=== PATIENT | female | born 1950 | race Caucasian/White ===

== ENCOUNTER 2019-02-01 14:36 | Emergency (ER) | payer MEDICARE, OTHER, SELFPAY ==
[2019-02-01 14:37] VITALS: BP 138/73; PULSE 70; RESP 16; TEMP 36.8; O2SAT 100; BMI 26.2
--- NOTE | 2019-02-01 14:49 | CT_ITS ---
STUDY: CT BRAIN WITHOUT CONTRAST REASON FOR EXAM: Female, 68 years old. FELL LAST WEEKEND SKIING, HIT HEAD, NO LOC, VISION PROBLEMS, [place], ON BLOOD THINNERS RADIATION DOSAGE (If Supplied By Facility): CTDIvol = ( 44.99 ) mGy, DLP = ( 796.11 ) mGycm TECHNIQUE: Transaxial CT imaging of the brain was performed without administration of intravenous contrast material. Individualized dose optimization techniques were used for this CT. COMPARISON: None. FINDINGS: Normal soft tissue structures. Normal calvarium. Normal size ventricles and extra-axial spaces for the patient's age. There are areas of decreased attenuation within the white matter tracts of the supratentorial brain, consistent with microvascular disease changes. Normal basal ganglia and thalami. Normal brainstem. Normal cerebellum. There is no intracranial hemorrhage. There are no findings of an acute ischemic infarction. Normal visualized paranasal sinuses. CT/Brain/Head without Contrast IMPRESSION: Chronic involutional changes of the brain. Electronically Signed: Reji Subramanian, at 16:07 EDT Tel , Service support ,
--- NOTE | 2019-02-01 14:51 | ED.VISSUMM ---
- ER Visit Summary Date of Service: 02/01/19 Chief Complaint: Head injury History of Present Illness: The patient is a 68 F who sustained a head injury while skiing 4 days ago. She was wearing a helmet when she fell and hit her head. No LOC. She still has been having a throbbing frontal headache. She has had some trouble focusing as well. 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 She denies any neck pain. Denies any trouble using her arms or legs. Physical Examination: Vital signs reviewed. HEENT exam unremarkable. Heart is regular rate and rhythm without murmurs. Lungs are clear to auscultation. Abdomen is soft and nontender. Extremities reveal no edema. Skin exam normal. Neurologic exam normal. Test Results: CAT scan reveals chronic changes. No bleeding Emergency Department Course and Treatment: Patient likely has a concussion due to her constellation of symptoms. I counseled them on concussion symptoms and remedies. She will use Tylenol for pain at home. She will follow-up with her PCP if her symptoms persist Treatment Plan: [] Disposition: Discharge Impression: Concussion without loss of consciousness This note was generated with [employer] dictation software. It may contain incorrect words, spelling, and punctuation that were not noted in review of the chart prior to signing ED Disposition - Plan for ED Patient: Referrals: William Silva DO [Primary Care Provider] -
--- NOTE | 2019-02-01 16:15 | ED.DEP ---
ED Disposition - Plan for ED Patient: Disposition: Home or Assisted Living Instructions: ED Concussion Referrals: William Silva DO [Primary Care Provider] -
[2019-02-01 16:20] VITALS: BP 130/72; PULSE 82; RESP 17; O2SAT 99
== END 2019-02-01 16:23 | disposition home or self-care (01) ==
PROVIDERS: Emergency Provider Emergency Medicine; Family Provider Student in an Organized Health Care Education/Training Program; PCP Student in an Organized Health Care Education/Training Program
DX: S06.0X0A Concussion without loss of consciousness, initial encounter (principal); V00.321A Fall from snow-skis, initial encounter; Y93.23 Activity, snow (alpine) (downhill) skiing, snowboarding, sledding, tobogganing and snow tubing; Y92.9 Unspecified place or not applicable; Y99.9 Unspecified external cause status; I10 Essential (primary) hypertension; K21.9 Gastro-esophageal reflux disease without esophagitis; Z79.01 Long term (current) use of anticoagulants; Z79.899 Other long term (current) drug therapy; Z86.711 Personal history of pulmonary embolism; Z86.718 Personal history of other venous thrombosis and embolism
CPT/HCPCS: 70450; 99282

== ENCOUNTER → 2019-02-22 14:25 | Outpatient (CLI) | payer MEDICARE, OTHER, SELFPAY ==
[2019-02-01 14:37] VITALS: BMI 26.2
[2019-02-22 15:58] LABS: Creatinine, Serum 0.98 mg/dL (0.55-1.02); EST Glomerular Filtration Rate 60 mL/min (>60); Est Glom Filt Rate - Afr Amer 73 mL/min (>60)
== END ==
PROVIDERS: Family Provider Student in an Organized Health Care Education/Training Program; PCP Student in an Organized Health Care Education/Training Program; Referring Provider Urology; Visit Provider Urology
DX: R31.9 Hematuria, unspecified (principal)
CPT/HCPCS: 36415; 82565

== ENCOUNTER → 2019-03-02 12:41 | Outpatient (CLI) | payer MEDICARE, OTHER, SELFPAY ==
[2019-02-01 14:37] VITALS: BMI 26.2
--- NOTE | 2019-03-02 12:43 | CT_ITS ---
STUDY: CT ABDOMEN AND PELVIS WITH AND WITHOUT CONTRAST REASON FOR EXAM: Female, 68 years old. Hematuria and UTI. RADIATION DOSAGE (If Supplied By Facility): CTDIvol = ( 17.07 ) mGy, DLP = ( 2100.74 ) mGycm TECHNIQUE: Transaxial images were obtained from the dome of the diaphragm to the symphysis pubis without oral contrast. 100ml IV Isovue 300 was administered. Sagittal and coronal images were reconstructed. Individualized dose optimization techniques were used for this CT. COMPARISON: None. FINDINGS: The visualized lung bases are unremarkable. The visualized portions of the heart are within normal limits. Normal liver. Normal gallbladder and extrahepatic biliary system. Normal spleen. Normal pancreas. Normal right adrenal gland. 1.6 cm very low density nodule of the left adrenal gland consistent with adenoma. Normal right kidney. Left kidney has a very faint 7 mm area of parenchymal calcification of the posterior upper pole seen on axial image 11 of series 2. This is not an actual renal stone. Both kidneys show symmetric contrast enhancement. Both collecting systems are normal. No hydronephrosis. Both ureters are normal. Evaluation of the GI tract is limited without oral contrast. There may be stomach wall thickening. However the stomach is not fully distended. There are no dilated loops of small bowel but most of the small bowel is fluid-filled. Cannot evaluate for segmental small bowel wall thickening without oral contrast. Marked diffuse distention of the large bowel filled with fecal material and air. Findings extend to a long segment of narrowed sigmoid seen on sagittal image 76. This is probably simply nondistention, but the degree of bowel distention proximal is suspicious and colonoscopy is recommended. Normal abdominal aorta. Normal inferior vena cava. Normal retroperitoneum. Normal urinary bladder. Normal visualized uterus. There is a small umbilical hernia containing fat. There are diffuse degenerative changes of the visualized lumbar spine. CT/CT Abd/Pelvis W/WO Contrast IMPRESSION: Small parenchymal calcification of the left kidney probably from scarring, not an actual renal stone. No other significant findings of either kidney, collecting system or ureter. Marked distention of the large bowel with air and fecal material down to the sigmoid which is nondistended or narrowed. Colonoscopy recommended. Electronically Signed: Christopher Christina MD at 13:29 EDT , Service support ,
== END ==
PROVIDERS: Family Provider Student in an Organized Health Care Education/Training Program; PCP Student in an Organized Health Care Education/Training Program; Referring Provider Urology; Visit Provider Urology
DX: R31.29 Other microscopic hematuria (principal); N39.0 Urinary tract infection, site not specified
CPT/HCPCS: 74178; Q9967

== ENCOUNTER 2019-09-23 20:25 | Emergency (ER) | payer MEDICARE, OTHER, SELFPAY ==
[2019-09-23 20:26] VITALS: BP 129/83; PULSE 75; RESP 15; TEMP 36.8; O2SAT 98; BMI 25.9
--- NOTE | 2019-09-23 20:49 | CT_ITS ---
STUDY: CT BRAIN WITHOUT CONTRAST REASON FOR EXAM: Female, 69 years old. Headache after fall RADIATION DOSAGE (If Supplied By Facility): CTDIvol = ( 44.99 ) mGy, DLP = ( 798.92 ) mGycm TECHNIQUE: Transaxial CT imaging of the brain was performed without administration of intravenous contrast material. Individualized dose optimization techniques were used for this CT. COMPARISON: 02/01/2019 FINDINGS: Left posterior scalp hematoma without skull fracture. Normal size ventricles and extra-axial spaces for the patient's age. Normal white matter tracts of the cerebral hemispheres. Normal basal ganglia and thalami. Normal brainstem. Normal cerebellum. There is no intracranial hemorrhage. There are no findings of an acute ischemic infarction. Normal visualized paranasal sinuses. CT/Brain/Head without Contrast IMPRESSION: No acute intracranial abnormalities, left posterior scalp hematoma Electronically Signed: Ulises Angulo MD at 21:27 EST , Service support ,
[2019-09-23] MEDS: Diphth,Pertuss(Acell),Tet Vac 0.5 ML Vial IM (21:16)
--- NOTE | 2019-09-23 21:52 | ED.VIS.INJ ---
History of Present Illness Chief Complaint: Laceration Informant: Patient, Significant Other Onset: Today Mechanism/Context: Blunt Injury, Fall Quality of Pain: Dull, Aching Location: Occiput Current Severity: Mild Maximum Severity: Moderate Worsened by: Fall down steps Relieved by: Nothing Associated Symptoms: Loss of consciousness. 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 She was going up steps. She lost her balance fell down 3 steps. She hit the back of her head on the floor and and a metal gate. She reports headache. She denies double vision, blurred vision or loss of vision. Denies muffled hearing or decreased hearing. She denies ringing or ears. She denies nosebleed. She denies malalignment of her teeth. She denies trauma to her face. She denies neck pain. She denies paresthesia, anesthesia or motor weakness presently the time of the injury. She denies cardiac respiratory symptoms. Denies black or maroon stool. Tetanus Immunization: Unknown Prior similar symptoms: No Recent Illness/Hospitalization: No - Past Medical History (1) Personal history of DVT (deep vein thrombosis) Status: Acute (2) History of pulmonary embolus (PE) Status: Acute (3) Anticoagulant long-term use Status: Acute (4) Hypercholesterolemia Status: Acute (5) History of hypertension Status: Acute (6) History of depression Status: Acute Past Medical History - Allergies and Home Meds Allergies/Adverse Reactions: Allergies iodine Allergy (Verified 09/23/19 20:29) Other shellfish derived Allergy (Verified 09/23/19 20:29) Other Primary Care Physician: William Silva DO [Primary Care Provider] - Prior records reviewed: Yes Surgical History: noncontributory Lives: Spouse/ Significant Other Smoking Status: Never smoker Alcohol: Rare Drugs: None Review of Systems General: Denies: Chills, Fever, Sweats Eyes: Denies: Visual changes - bilaterally, Blurred Vision - bilaterally, Diplopia ENT: Denies: Bilateral ear pain, Rhinorrhea, Sore throat Cardiovascular: Denies: Chest pain, Palpitations Respiratory: Denies: Dyspnea, Cough, Sputum, Dyspnea on exertion Gastrointestinal: Denies: Nausea, Vomiting Musculoskeletal: Denies: Myalgias, Arthralgias, Neck pain, Back pain, Swelling, Extremity Pain Skin: Reports: Wounds. Denies: Rash Neurological: Reports: Headache. Denies: Weakness, Parasthesia, Numbness Hematologic: Reports: Easy bruising. Denies: Easy bleeding, Lymphadenopathy Allergy: Denies: Uticaria, Swelling of the mouth Physical Exam Vital Signs/Narrative: Vital Signs Temp Pulse Resp BP Pulse Ox 09/23/19 20:26 98.2 F 75 15 129/83 H 98 Inital Vital Signs reviewed: Yes General: Well nourished, Well developed, - - A 3 cm laceration occiput. Head: Normocephalic, Trauma, Tenderness, - - No palpable depression. There is no clinical findings of basal skull fracture. Eyes: Perrl, EOMI, - - Is no subconjunctival hemorrhage. Negative for: Pale conjunctiva, Scleral icterus ENT: TM's clear, No hemotympanum or drainage, No trauma. Negative for: Hemotympanum, Otorrhea, Nasal trauma, Nasal septal hematoma Neck: Nontender, Full ROM. Negative for: Spinal Tenderness, Paraspinal Tenderness Cardiovascular: Regular rate, Regular rhythm, No murmurs, Normal S1, Normal S2 Respiratory: No distress, CTA bilaterally, Chest nontender Abdomen: Soft, Nontender, Nondistended, Normal bowel sounds Back: Nontender Skin: Normal color, Trauma - 3 cm laceration occiput Neurological: Alert, Oriented x3, Cranial nerves II-XII grossly intact, Normal Strength, Normal Sensation, Normal DTR - There is no clonus or Babinski sign., Normal Gait Psychological: Normal affect, Normal Mood Diagnostic/Tx/Re-eval Impressions Brain CT 09/23/19 20:49 IMPRESSION: No acute intracranial abnormalities, left posterior scalp hematoma Electronically Signed: Ulises Angulo MD at 21:27 EST , Service support , 09/23/19 20:49 Brain/Head without Contrast [CT] Stat - Medical Decision Making History of head trauma fall down several steps on anticoagulant CT of the head was obtained. CT of the head interpreted radiologist and reviewed by me as negative. Tetanus was updated. Scalp laceration was closed using staple gun. Laceration No standard instances Length: 1.18 in Depth: Sub Q Shape: Irregular shaped Prep: Aurelia-Pamela Laceration Repair: Local Irrigated (ml): 100 Number of Sutures/Mckayla: 4 ED Disposition - Plan for ED Patient: Disposition: Home or Assisted Living Diagnosis: Occipital scalp laceration, Concussion, Anticoagulant long-term use Instructions: LACERATION, Scalp, Head Trauma (Traumatic Brain Injury) Referrals: William Silva DO [Primary Care Provider] - 7 Days for suture removal Additional Instructions: Clean wound with peroxide and Q-tip 3 times a day then apply bacitracin ointment.
== END 2019-09-23 22:10 | disposition home or self-care (01) ==
PROVIDERS: Emergency Provider Emergency Medicine; Family Provider Student in an Organized Health Care Education/Training Program; PCP Student in an Organized Health Care Education/Training Program
DX: S01.01XA Laceration without foreign body of scalp, initial encounter (principal); S06.0X0A Concussion without loss of consciousness, initial encounter; W10.9XXA Fall (on) (from) unspecified stairs and steps, initial encounter; Y93.9 Activity, unspecified; Y92.9 Unspecified place or not applicable; Y99.9 Unspecified external cause status; Z23 Encounter for immunization; I10 Essential (primary) hypertension; E78.00 Pure hypercholesterolemia, unspecified; F32.9 Major depressive disorder, single episode, unspecified; Z79.01 Long term (current) use of anticoagulants; Z79.899 Other long term (current) drug therapy; Z86.711 Personal history of pulmonary embolism; Z86.718 Personal history of other venous thrombosis and embolism
CPT/HCPCS: 12002; 70450; 90471; 90715; 99283

== ENCOUNTER 2022-02-19 07:13 | Outpatient (CLI) | payer MEDICARE, OTHER, SELFPAY ==
--- NOTE | 2022-02-19 07:14 | MRI_ITS ---
EXAM: MR PELVIS WITHOUT AND WITH INTRAVENOUS CONTRAST CLINICAL INDICATION: rectal prolapse TECHNIQUE: Multiplanar and multisequence MR images of the pelvis without and with intravenous contrast. This report was created using [employer] technology. CONTRAST: IV 15ml Dotarem COMPARISON: CT Mar 02 2019 12:57pm FINDINGS: BOWEL: No evidence for rectal prolapse. APPENDIX: No evidence of acute appendicitis. INTRAPERITONEAL SPACE: Unremarkable. No ascites or other fluid collection. BLADDER: Unremarkable. REPRODUCTIVE: Unremarkable as visualized. No mass. BONES/JOINTS: Degenerative findings in lumbar spine with multilevel disc herniations. Dedicated MRI of the lumbar spine is recommended to evaluate. No suspicious lytic or blastic abnormality. SOFT TISSUES: There is an umbilical hernia containing fat. There is no bowel involvement. There is no incarceration. There is no findings suggesting that this is causing a bowel obstruction. LYMPH NODES: Unremarkable. No enlarged lymph nodes. MRI/Pelvis W/WO Contrast IMPRESSION: 1. Degenerative findings in lumbar spine with multilevel disc herniations. Dedicated MRI of the lumbar spine is recommended to evaluate. 2. No evidence for rectal prolapse. Electronically Signed: Hoang Douglass MD at 15:13 EDT ,
[2022-02-19 07:46] LABS: CREATININE FINGERSTICK 0.8 mg/dL (0.55-1.02); EGFR FINGERSTICK > 60.0000 mL/min (>60)
== END 2022-02-19 23:59 | disposition home or self-care (01) ==
PROVIDERS: PCP Student in an Organized Health Care Education/Training Program; Referring Provider Internal Medicine Gastroenterology; Visit Provider Internal Medicine Gastroenterology
DX: K62.3 Rectal prolapse (principal)
CPT/HCPCS: 72197; A9575

== ENCOUNTER → 2022-04-13 | Outpatient (CLI) | payer MEDICARE, OTHER, SELFPAY ==
[2022-04-13 13:19] LABS: Absolute Lymphocyte Count 1.13 X10^3/uL (0.83-4.51); Absolute Neutrophil Count 1.8 X10^3/uL (2.0-7.7); Basophil# 0.04 X10^3/uL; Basophil% 1.1 % (0-1); Eosinophil# 0.12 X10^3/uL; Eosinophils% 3.2 % (0-5); Hematocrit 33.1 % (37-47); Hemoglobin 10.8 g/dL (12.0-15.0); Lymphocyte # 1.13 X10^3/ul (0.83-4.51); Mean Corp Hgb Conc 32.6 g/dL (32-36); Mean Corpuscular Volume 95.1 fL (81-99); Mean Platelet Vol. 9.3 fl (6.2-12.0); Monocyte# 0.67 X10^3/uL; Monocyte% 17.8 % (0-10); NRBC Flagged by Analyzer 0 % (0-5); Neutrophil % 47.6 % (47-70); Platelet Count 342 K/mm3 (150-450); RBC Distribution Width CV 14.3 % (11.6-14.6); Red Blood Count 3.48 M/mm3 (4.2-5.4); White Blood Count 3.8 K/mm3 (4.4-11.0)
[2022-04-13 13:25] LABS: Erythrocyte Sedimentation Rate 26 mm/hr (0-30)
[2022-04-13 13:30] LABS: ALB/GLOB Ratio 0.9 RATIO (0.9-2.4); AST(SGOT) 19 U/L (15-37); Alanine Aminotransfer ALT/SGPT 40 U/L (13-56); Albumin, Serum 3.5 g/dL (3.2-5.0); Alkaline Phosphatase 55 U/L (45-117); Anion Gap 3 (5-15); BUN 21 mg/dL (7-18); BUN/Creat Ratio 24.5 RATIO (10-20); CRP < 2.90 mg/L (0.0-3.0); Chloride 103 mmol/L (98-107); Creatinine, Serum 0.86 mg/dL (0.55-1.02); EST Glomerular Filtration Rate 69 mL/min (>60); Est Glom Filt Rate - Afr Amer 84 mL/min (>60); Glucose 100 mg/dL (74-106); LDH 151 U/L (84-246); Potassium 4.1 mmol/L (3.5-5.1); Protein, Total 7.5 g/dL (6.4-8.2); Sodium Level 134 mmol/L (136-145)
[2022-04-13 15:09] LABS: Platelet Count 346 K/mm3 (150-450); RET-HE 33.3 pg (30-35); Reticulocyte Count 1.37 % (0.5-1.5)
[2022-04-13 18:01] LABS: Ferritin 21 ng/mL (8-252); Iron 67 ug/dL (50-170)
[2022-04-14 14:10] LABS: Anti-Centromere B Ab <0.2 AI (0.0-0.9); Anti-Chromatin <0.2 AI (0.0-0.9); Anti-Jo <0.2 AI (0.0-0.9); Anti-Scleroderma-70 AB <0.2 AI (0.0-0.9); RNP Ab 0.2 AI (0.0-0.9); SJOGREN'S Anti-SS-A test < 0.2 AI (0.0-0.9); SJOGREN'S Anti-SS-B test < 0.2 AI (0.0-0.9); Smith Ab 1.1 AI (0.0-0.9)
[2022-04-14 17:07] LABS: Endomysial Antibody IgA Negative (Negative)
[2022-04-14 20:41] LABS: Anti-dsDNA Ab <1 IU/mL (0-9)
[2022-04-14 20:44] LABS: Immunoglobulin A 358 mg/dL (64-422); t-Transglutaminase IgA <2 U/mL (0-3)
[2022-04-16 12:23] LABS: Transferrin 330 mg/dL (192-364)
[2022-04-19 14:09] LABS: Albumin 3.6 g/dL (2.9-4.4); Alpha-1-Globulins 0.2 g/dL (0.0-0.4); Alpha-2-Globulins 0.9 g/dL (0.4-1.0); Cytoplasmic Ab (C-ANCA) <1:20 titer (Neg:<1:20); Gamma Globulin 1.2 g/dL (0.4-1.8); Immunoglobulin A 371 mg/dL (64-422); Immunoglobulin E 25 IU/mL (6-495); Immunoglobulin G 1246 mg/dL (586-1602); Immunoglobulin M 85 mg/dL (26-217); PROEL- TOTAL PROTEIN 7.1 g/dL (6.0-8.5)
[2022-04-19 15:32] LABS: Perinuclear Ab (P-ANCA) <1:20 titer (Neg:<1:20)
== END | disposition home or self-care (01) ==
LOC: LAB 12:10
PROVIDERS: PCP Student in an Organized Health Care Education/Training Program; Visit Provider Internal Medicine Gastroenterology
DX: R19.7 Diarrhea, unspecified (principal); K58.9 Irritable bowel syndrome, unspecified; K31.84 Gastroparesis
CPT/HCPCS: 36415; 80053; 82728; 82784; 82785; 83516; 83540; 83615; 84165; 84466; 85025; 85045; 85652; 86140; 86225; 86235; 86255; 86256; 86334

== ENCOUNTER → 2022-04-14 | Outpatient (CLI) | payer MEDICARE, OTHER, SELFPAY ==
[2022-04-21 20:56] LABS: Calprotectin, Stool 73 ug/g (0-120)
[2022-04-22 02:09] LABS: H. PYLORI STOOL AG Negative (Negative)
[2022-04-22 11:10] LABS: Giardia Lamblia, Stool EIA Negative (Negative); Pancreatic Elastase, Fecal 105 (>200)
== END | disposition home or self-care (01) ==
LOC: LABSPEC 14:32
PROVIDERS: PCP Student in an Organized Health Care Education/Training Program; Visit Provider Internal Medicine Gastroenterology
DX: R19.7 Diarrhea, unspecified (principal)
CPT/HCPCS: 82653; 83993; 87329

== ENCOUNTER → 2022-04-27 | Outpatient (CLI) | payer MEDICARE, OTHER, SELFPAY ==
--- NOTE | 2022-04-27 11:51 | NM_ITS ---
Gastric emptying study INDICATION: Abdominal pain, constipation, diarrhea. TECHNIQUE: After the administration of 1 mCi technetium 99m sulfur colloid in a meal of oatmeal orally, multiple scintigraphic images of the abdomen were obtained. Furthermore, counts were obtained in the gastric emptying curve was plotted. FINDINGS: Normal uptake is seen within the stomach with passage through the duodenum into the small bowel. After 30 minutes, there is 19% gastric retention which is decreased. After 1 hour, there is 10% gastric retention which is decreased. T1 half is 12 minutes which is decreased consistent with rapid gastric emptying. NM/Gastric Emptying Study IMPRESSION: Rapid gastric emptying. Electronically Signed: Tyrell Iverson MD at 13:52 EDT ,
== END | disposition home or self-care (01) ==
LOC: NM 11:47
PROVIDERS: PCP Student in an Organized Health Care Education/Training Program; Visit Provider Internal Medicine Gastroenterology
DX: R10.9 Unspecified abdominal pain (principal)
CPT/HCPCS: 78264; A9541

== ENCOUNTER → 2022-05-18 | Outpatient (CLI) | payer MEDICARE, OTHER, SELFPAY ==
--- NOTE | 2022-05-18 10:45 | RAD_ITS ---
STUDY: X-RAY - ABDOMEN/PELVIS REASON FOR EXAM: Female, 71 years old. sitz day 3 TECHNIQUE: Single AP view of the abdomen / pelvis. COMPARISON: None. FINDINGS: There are approximately 13 Sitz white noted on the exam. One to the left of the spine is likely in the transverse colon there are approximately 7 within the descending colon and the others are within the sigmoid colon. There is an unremarkable bowel gas pattern. There is no demonstrated free abdominal air. The visualized liver, spleen and kidneys are grossly normal in size and morphology. Normal soft tissue structures. There are diffuse degenerative changes of the visualized lumbar spine. RAD/Abdomen Single View IMPRESSION: No acute findings Sitzmarks as described Electronically Signed: Ulises Angulo MD at 11:29 EDT ,
== END | disposition home or self-care (01) ==
LOC: RAD 10:40
PROVIDERS: PCP Student in an Organized Health Care Education/Training Program; Referring Provider Internal Medicine Gastroenterology; Visit Provider Internal Medicine Gastroenterology
DX: K59.00 Constipation, unspecified (principal)
CPT/HCPCS: 74018

== ENCOUNTER → 2022-05-20 | Outpatient (CLI) | payer MEDICARE, OTHER, SELFPAY ==
--- NOTE | 2022-05-20 10:50 | RAD_ITS ---
STUDY: X-RAY - ABDOMEN/PELVIS REASON FOR EXAM: Female, 71 years old. sitaz day 5 TECHNIQUE: Single AP view of the abdomen / pelvis. COMPARISON: Comparison is made with prior study 05/18/2022. FINDINGS: There is an unremarkable bowel gas pattern. The Sitzmarks markers are seen in the rectum. A single Sitzmarks marker is seen in the proximal sigmoid colon as well as in the mid descending colon. The visualized liver, spleen and kidneys are grossly normal in size and morphology. Normal soft tissue structures. There are diffuse degenerative changes of the visualized lumbar spine. RAD/Abdomen Single View IMPRESSION: Majority of cysts markers are seen in the rectum. Electronically Signed: Gautam Roldan MD at 15:27 EDT ,
== END | disposition home or self-care (01) ==
LOC: RAD 10:41
PROVIDERS: PCP Student in an Organized Health Care Education/Training Program; Referring Provider Internal Medicine Gastroenterology; Visit Provider Internal Medicine Gastroenterology
DX: K59.00 Constipation, unspecified (principal)
CPT/HCPCS: 74018

== ENCOUNTER → 2022-10-01 | Outpatient (CLI) | payer MEDICARE, OTHER, SELFPAY ==
[2022-10-06 15:03] LABS: Androstenedione 42 ng/dL (17-99)
== END | disposition home or self-care (01) ==
LOC: LAB 10:40
PROVIDERS: PCP Student in an Organized Health Care Education/Training Program; Referring Provider Internal Medicine Gastroenterology; Visit Provider Internal Medicine Gastroenterology
DX: R19.8 Other specified symptoms and signs involving the digestive system and abdomen (principal)
CPT/HCPCS: 36415; 82157; 82533

== ENCOUNTER → 2022-10-04 | Outpatient (CLI) | payer MEDICARE, OTHER, SELFPAY | END | disposition home or self-care (01) | PROVIDERS: PCP Student in an Organized Health Care Education/Training Program; Visit Provider Internal Medicine Gastroenterology | DX: R91.8 Other nonspecific abnormal finding of lung field (principal) | CPT/HCPCS: 81050 ==

== ENCOUNTER → 2023-05-02 | Outpatient (CLI) | payer MEDICARE, OTHER, SELFPAY ==
[2023-05-02 09:37] LABS: Erythrocyte Sedimentation Rate 18 mm/hr (0-30)
[2023-05-02 10:13] LABS: CRP < 2.90 mg/L (0.0-3.0); Thyroid Stim Hormone (TSH) 4.31 uIU/mL (0.358-3.74)
[2023-05-03 14:09] LABS: Endomysial Antibody IgA Negative (Negative); Immunoglobulin A 398 mg/dL (64-422); t-Transglutaminase IgA <2 U/mL (0-3)
[2023-05-05 17:07] LABS: Albumin 3.8 g/dL (2.9-4.4); Alpha-1-Globulins 0.3 g/dL (0.0-0.4); Gamma Globulin 1.4 g/dL (0.4-1.8); Immunoglobulin A 402 mg/dL (64-422); Immunoglobulin E 26 IU/mL (6-495); Immunoglobulin G 1309 mg/dL (586-1602); Immunoglobulin M 86 mg/dL (26-217); PROEL- TOTAL PROTEIN 7.8 g/dL (6.0-8.5)
[2023-05-05 19:07] LABS: Beef <0.10 kU/L (Class 0); Chocolate <0.10 kU/L (Class 0); Clam <0.10 kU/L (Class 0); Codfish <0.10 kU/L (Class 0); Corn <0.10 kU/L (Class 0); Egg, White <0.10 kU/L (Class 0); Egg, Whole <0.10 kU/L (Class 0); Milk (Cow) 0.17 kU/L (Class 0/I); Peanut <0.10 kU/L (Class 0); Pork <0.10 kU/L (Class 0); SCALLOP <0.10 kU/L (Class 0); SESAME SEED <0.10 kU/L (Class 0); Shrimp <0.10 kU/L (Class 0); Soybean <0.10 kU/L (Class 0); Walnut, (Food) <0.10 kU/L (Class 0); Wheat <0.10 kU/L (Class 0)
== END | disposition home or self-care (01) ==
LOC: LAB 08:37
PROVIDERS: PCP Student in an Organized Health Care Education/Training Program; Referring Provider Internal Medicine Gastroenterology; Visit Provider Internal Medicine Gastroenterology
DX: K86.81 Exocrine pancreatic insufficiency (principal); R19.8 Other specified symptoms and signs involving the digestive system and abdomen; D64.9 Anemia, unspecified
CPT/HCPCS: 36415; 82784; 82785; 83516; 84165; 84443; 85652; 86003; 86005; 86140; 86255; 86334

== ENCOUNTER → 2023-05-24 | Outpatient (CLI) | payer MEDICARE, OTHER, SELFPAY ==
[2023-05-27 19:07] LABS: Pancreatic Elastase, Fecal 84 (>200)
== END | disposition home or self-care (01) ==
PROVIDERS: PCP Student in an Organized Health Care Education/Training Program; Referring Provider Internal Medicine Gastroenterology; Visit Provider Internal Medicine Gastroenterology
DX: K86.81 Exocrine pancreatic insufficiency (principal)
CPT/HCPCS: 82653

== ENCOUNTER 2024-03-31 21:22 | Inpatient (IN) | payer MEDICARE, OTHER, SELFPAY ==
[2024-03-31 21:22] VITALS: BP 120/61; PULSE 66; RESP 16; TEMP 36.6; O2SAT 100
[2024-03-31 21:30] VITALS: BMI 25.7
--- NOTE | 2024-03-31 21:50 | RAD_ITS ---
EXAM: XR LEFT WRIST COMPLETE, 3 OR MORE VIEWS CLINICAL INDICATION: FALL, PAIN TECHNIQUE: Frontal, lateral and oblique views of the left wrist. COMPARISON: No relevant prior studies available. FINDINGS: BONES/JOINTS: Osseous structures are demineralized. No acute fracture. No subluxation. Normal alignment. Degenerative narrowing of the first carpal-metacarpal articulation with mild subchondral sclerosis and marginal osteophytes. No sclerotic or destructive changes observed. SOFT TISSUES: Mild soft tissue swelling dorsal to the wrist. Pronator fat pad is not displaced. No radiopaque foreign body. RAD/Wrist min 3 Views IMPRESSION: No acute fracture or dislocation. Electronically Signed: Son Chandler MD at 22:06 EDT ,
--- NOTE | 2024-03-31 21:50 | RAD_ITS ---
EXAM: XR CHEST, 1 VIEW CLINICAL INDICATION: PRE OP TECHNIQUE: Frontal view of the chest. COMPARISON: No relevant prior studies available. FINDINGS: LUNGS AND PLEURAL SPACES: Unremarkable. No consolidation or edema. No pneumothorax. No effusion. HEART: Normal heart size. Supine patient positioning accentuates the upper lobe pulmonary vasculature. MEDIASTINUM: Mild elongation and calcification of the thoracic aorta. BONES/JOINTS: Thoracic degenerative spurring. No acute fracture. SOFT TISSUES: Unremarkable. RAD/Chest 1 View (Portable) IMPRESSION: No radiographic evidence of acute cardiopulmonary disease. Electronically Signed: Son Chandler MD at 22:04 EDT ,
--- NOTE | 2024-03-31 21:54 | RAD_ITS ---
EXAM: XR LEFT HIP WITH PELVIS WHEN PERFORMED, 2 OR 3 VIEWS CLINICAL INDICATION: FALL, PAIN TECHNIQUE: Two or three views of the left hip with pelvis when performed. COMPARISON: No relevant prior studies available. FINDINGS: BONES/JOINTS: An acute fracture of the left femoral neck is present, primarily subcapital in location. The fracture fragments are mildly impacted with mild cephalad displacement of the femoral shaft in relation to the femoral head. The femoral head remains normally aligned within the left acetabulum. Proximal right femur and pubic rami are intact. The pubic symphysis and SI joints are not abnormally widened. Severe degenerative disc space narrowing noted at L4/5 with vacuum disc phenomenon. Lower lumbar facet arthritis also demonstrated. No destructive or sclerotic lesions. SOFT TISSUES: Unremarkable. No soft tissue swelling or gas. RAD/HIP, UNI W/ Pelvis 2-3 Views IMPRESSION: Acute impacted subcapital fracture of the left femoral neck. Electronically Signed: Son Chandler MD at 22:09 EDT ,
[2024-03-31 22:00] VITALS: BP 126/71; PULSE 70; RESP 16; O2SAT 95
[2024-03-31] MEDS: 0.9% Normal Saline (1000mL) 1,000 ML 150 ML IV (22:46)
[2024-03-31 22:49] LABS: Absolute Lymphocyte Count 1.09 X10^3/uL (0.83-4.51); Absolute Neutrophil Count 7.3 X10^3/uL (2.0-7.7); Basophil# 0.04 X10^3/uL; Basophil% 0.4 % (0-1); Eosinophil# 0.04 X10^3/uL; Eosinophils% 0.4 % (0-5); Hematocrit 32.2 % (37-47); Hemoglobin 10.8 g/dL (12.0-15.0); Lymphocyte # 1.09 X10^3/ul (0.83-4.51); Mean Corp Hgb Conc 33.5 g/dL (32-36); Mean Corpuscular Hgb 31.7 pg (27.0-32.0); Mean Corpuscular Volume 94.4 fL (81-99); Mean Platelet Vol. 9.2 fl (6.2-12.0); Monocyte# 0.58 X10^3/uL; Monocyte% 6.4 % (0-10); NRBC Flagged by Analyzer 0 % (0-5); Neutrophil # 7.33 X10^3/uL (2.7-7.7); Neutrophil % 80.5 % (47-70); Platelet Count 275 K/mm3 (150-450); RBC Distribution Width SD 47.9 fl (35.1-43.9); Red Blood Count 3.41 M/mm3 (4.2-5.4); White Blood Count 9.1 K/mm3 (4.4-11.0)
--- NOTE | 2024-03-31 22:50 | EKG12_ITS ---
Test Reason : PRE OP Blood Pressure : / mmHG Vent. Rate : 066 BPM Atrial Rate : 066 BPM P-R Int : 182 ms QRS Dur : 082 ms QT Int : 394 ms P-R-T Axes : 045 003 011 degrees QTc Int : 413 ms Normal sinus rhythm Normal ECG Confirmed by Iglesia Alexandre ([id number]), editor newspaper [place] ([id number]) on 04/02/2024 9:03:30 AM Referred By: Confirmed By:Iglesia Alexandre
[2024-03-31 23:00] LABS: International Normalized Ratio 1.2; Prothrombin Time (Protime)PT. 15.6 SECONDS (11.7-14.9)
--- NOTE | 2024-03-31 23:01 | EX.ED.DYSGE1 ---
HPI History of Present Illness Chief Complaint: Fall Informant: patient and spouse/S.O. Narrative Narrative: Patient is a 73-year-old female with past medical history of hypertension hyperlipidemia and previous DVT currently on Eliquis. She states that she was with her and family going to watch the [employer] game in [place] and as she was walking into the stadium tripped on an uneven piece of concrete landing on her left side. She denies striking her head or any loss of consciousness. However after the fall she could not get up secondary to pain. Family states they were able to lift her and get her into the car and she did not want to be evaluated in [place] as they live in this region and drove to the hospital for evaluation. Patient states has been no headache light-sensitive a change in vision nausea or vomiting since the fall which occurred around 6:30 PM [facility] Medical History (Updated 04/01/24 @ 07:[address] Logan Anglin, DO) IBS (irritable bowel syndrome) Pancreatitis POTS (postural orthostatic tachycardia syndrome) Lactose intolerance Internal hemorrhoids Insomnia GERD (gastroesophageal reflux disease) Elevated anti-tissue transglutaminase (tTG) IgA level Depression Fox's cyst of knee Asthma exacerbation Anxiety Personal history of DVT (deep vein thrombosis) Home Medications ?Medication ?Instructions ?Recorded ?Last Taken ?Type bupropion HCl 100 mg tablet 150 mg PO BID depression 07/31/15 07/31/15 History metoprolol succinate 25 mg 25 mg PO DAILY bp 07/31/15 07/31/15 History tablet,extended release 24 hr simvastatin 40 mg tablet 40 mg PO QHS hld 07/31/15 07/30/15 History apixaban 5 mg tablet (Eliquis) 5 mg PO BID blood thin #60 tabs 09/27/16 Unknown Rx acetaminophen 500 mg tablet 500 mg PO Q6H PRN pain 02/03/22 Unknown History cholecalciferol (vitamin D3) 25 25 mcg PO DAILY supplement 02/03/22 Unknown History mcg (1,000 unit) capsule epinephrine 0.3 mg/0.3 mL 0.3 mg IM ONCE 02/03/22 Unknown History injection, auto-injector fluticasone propionate 50 2 spray intranasal DAILY allergy 02/03/22 Unknown History mcg/actuation nasal spray,suspension (Allergy Relief (fluticasone)) folic acid 1 mg tablet 1 mg PO DAILY supplement 02/03/22 Unknown History glucosamine sulfate 500 mg tablet 500 mg PO DAILY supplement 02/03/22 Unknown History hydroxychloroquine 200 mg tablet 200 mg PO BID 02/03/22 Unknown History ketoconazole 2 % topical cream 1 applic topical DAILY see 02/03/22 Unknown History magnesium 200 mg tablet 200 mg PO BID supplement 02/03/22 Unknown History triamcinolone acetonide 0.5 % 1 applic topical DAILY 02/03/22 Unknown History topical cream turmeric 100 mg-trang 150 1 cap PO DAILY supplement 02/03/22 Unknown History mg-olive 50 mg-oreg 150 mg-capryl capsule ubidecarenone-omega 3-vit E 25 1 cap PO DAILY supplement 02/03/22 Unknown History mg-150 (90-60) mg-200 unit capsule vitamin B complex (B 1 tab PO DAILY supplement 02/03/22 Unknown History Complex-Vitamin B12 tablet) vitamin E mixed 400 unit tablet 400 unit PO DAILY supplement 02/03/22 Unknown History [id number] See Rx Instructions PO TID 05/23/23 Unknown Rx 40,000-126,000-168,000 unit pancreatitis #350 caps capsule, delay rel (Zenpep) linaclotide 290 mcg capsule 290 mcg PO QAM ibs #90 caps 01/05/24 Unknown Rx (Linzess) budesonide 3 mg 9 mg (3 x 3 mg) PO DAILY ibs #90 ea 03/16/24 Unknown Rx capsule,delayed,extended release Allergy/AdvReac Type Severity Reaction Status Date / Time iodine Allergy Other Verified 03/31/24 21:23 shellfish derived Allergy Other Verified 03/31/24 21:23 polyethylene glycol 3350 AdvReac GI upset, Verified 03/31/24 21:23 (From Miralax) bloating Family History Mother Ovary cancer Lung cancer Father , at 83 Alzheimer disease Glaucoma Sister Histoplasmosis Surgical History History of total left knee replacement History of carpal tunnel release Hx of tonsillectomy History of adenoidectomy Cataract extraction status of right eye Cataract extraction status of left eye Social History Smoking Status: Never smoker alcohol intake: never substance use type: does not use ROS ROS ED Constitutional Constitutional ED: Denies chills or fever(s) Eyes Eyes: Denies blurry vision, change in vision or diplopia ENT ENT ED: Denies sore throat Cardiovascular Cardiovascular: Denies chest pain, palpitations or racing heartbeat Respiratory/Chest Respiratory/Chest: Denies cough or dyspnea Gastrointestinal Gastrointestinal: Denies abdominal pain, diarrhea, nausea or vomiting Genitourinary Genitourinary ED: Denies dysuria Musculoskeletal Musculoskeletal: Reports other Details: Positive left hip pain and left wrist pain ; Denies back pain or neck pain Integumentary Reports Abrasions Neurologic Neurologic: Denies headache(s) or paresthesias Hematologic/Lymphatic Hematologic/Lymphatic: Reports easy bleeding and easy bruising EXAM Physical Exam Const Vital Signs: 03/31/24 21:22 03/31/24 21:33 03/31/24 22:00 Temperature 98 F Temperature Source Temporal Pulse Rate 66 70 Respiratory Rate 16 16 Respiratory Effort Normal Respiratory Depth Normal Respiratory Pattern Normal Blood Pressure 120/61 126/71 H Blood Pressure Mean 80 89 Pulse Ox 100 95 Oxygen Delivery Method Room Air Room Air Room Air Positive well nourished and well developed General Appearance ED: well developed HEENT HEENT Narrative: Normocephalic atraumatic No signs of depressed or basilar skull fracture Eyes PERRL and EOMs intact bilaterally Neck supple Neck Narrative: No bony deformity or step-off of the cervical spine no midline pain with palpation Chest Wall palpation of chest normal Chest Narrative: No bony deformity or crepitance of the chest wall Resp normal respiratory effort and clear to auscultation bilaterally Cardio regular rate and regular rhythm GI normal to inspection, nondistended, normoactive bowel sounds, non-tender, non-distended and no masses Auscultation: normoactive bowel sounds Palpation: soft Back/Spine Back/Spine Narrative: No bony deformity or step-off of the thoracic or lumbar spine no midline tenderness to palpation Extremity Extremity Narrative: There is shortening and external rotation of the left lower extremity compared to right concerning for hip fracture. Active and passive range of motion is severely decreased secondary to pain. Compartments are soft and compressible going against compartment syndrome. Left lower extremity is neurovascular intact Patient also has soft tissue swelling with ecchymosis to the dorsal aspect of the left wrist without obvious bony deformity or joint effusion. No pain with palpation in the anatomical snuffbox Neuro oriented x3, CN's II-XII intact bilaterally and no sensory deficits noted Sensorium / Orientation: alert Psych mental status grossly normal Skin Skin Narrative: Soft tissue swelling and ecchymosis to the dorsal aspect of the left wrist as documented above Capillary refills less than 3 seconds MDM MDM MDM Narrative Medical decision making narrative: Patient presented to the ER with stable vitals and reported a mechanical fall roughly 4 hours prior to arrival. She states she did not strike her head or have any loss of consciousness but she is on Eliquis secondary to history of DVT and therefore we discussed obtaining a head CT in order to ensure that she does not have any type of spontaneous brain bleed. However she is 4 hours out from time of trauma does not have headache change in vision nausea vomiting or change in mental status and therefore does not want a image obtained as she does not have symptoms. Differential diagnosis is for femoral neck fracture versus pubic rami fracture versus contusion. X-ray of the left hip did confirm femoral neck fracture and secondary to this the case was discussed with orthopedics on-call. They feel patient is otherwise safe for treatment at this hospital based on her past medical history and fracture morphology. However as she does have multiple comorbidities they recommend admission to medicine service. Therefore they were contacted and they do agree to accept the patient at this time History & Record Review Discussion w/independent historian: Patient and Significant other Lab Data Attestation: I reviewed the patient's lab results. Labs: Laboratory Results - last 24 hr 03/31/24 22:04 WBC 9.1 RBC 3.41 L Hgb 10.8 L Hct 32.2 L MCV 94.4 MCH 31.7 MCHC 33.5 RDW Std Deviation 47.9 H RDW Coeff of Jonn 14.0 Plt Count 275 MPV 9.2 Immature Gran % (Auto) 0.300 Neut % (Auto) 80.5 H Lymph % (Auto) 12.0 L [place] % (Auto) 6.4 Eos % (Auto) 0.4 Baso % (Auto) 0.4 Absolute Neuts (auto) 7.3 Absolute Lymphs (auto) 1.09 Nucleated RBC % 0 PT 15.6 H INR 1.2 APTT 27.0 Sodium 130 L Potassium 3.5 Chloride 98 Carbon Dioxide 25.0 Anion Gap 7 BUN 17 Creatinine 0.97 Estim Creat Clear Calc 51.78 Est GFR (MDRD) Af Amer 72 Est GFR (MDRD) Non-Af 60 BUN/Creatinine Ratio 17.5 Glucose 126 H Calcium 8.7 Radiography Diagnostic Testing: Clinical Impression(s) from Imaging Studies Chest X-Ray 03/31/24 21:50 IMPRESSION: No radiographic evidence of acute cardiopulmonary disease. Electronically Signed: Son Chandler MD at 22:04 EDT , Wrist X-Ray 03/31/24 21:50 IMPRESSION: No acute fracture or dislocation. Electronically Signed: Son Chandler MD at 22:06 EDT , Hip/Pelvis X-Ray 03/31/24 21:54 IMPRESSION: Acute impacted subcapital fracture of the left femoral neck. Electronically Signed: Son Chandler MD at 22:09 EDT , Chest x-ray as interpreted by the emergency medicine physician reveals no acute infiltrate pneumothorax pleural effusion or rib fracture Left wrist x-ray as interpreted by the emergency medicine physician reveals no acute fracture dislocation or joint effusion Left hip x-rays 1 view pelvis as interpreted by the emergency medicine physician reveals a acute subcapital femoral neck fracture Management Discussion w/another healthcare provider: Hospitalist and [employer] Discharge Plan Dx/Rx/DC Orders Clinical Impression: Closed fracture of left hip, Anticoagulant long-term use, History of hypertension, Personal history of DVT (deep vein thrombosis) Disposition Disposition: Acute Care [facility] Discharge Date/Time: 03/31/24 23:36
[2024-03-31 23:03] LABS: Anion Gap 7 (5-15); BUN 17 mg/dL (7-18); BUN/Creat Ratio 17.5 RATIO (10-20); Calcium,Total 8.7 mg/dL (8.5-10.1); Chloride 98 mmol/L (98-107); Creatinine, Serum 0.97 mg/dL (0.55-1.02); EST Glomerular Filtration Rate 60 mL/min (>60); Est Glom Filt Rate - Afr Amer 72 mL/min (>60); Estimated Creatinine Clearance 51.78 ml/min; Glucose 126 mg/dL (74-106); Potassium 3.5 mmol/L (3.5-5.1); Sodium Level 130 mmol/L (136-145)
[2024-03-31 23:09] VITALS: BP 133/80; PULSE 71; RESP 18; TEMP 36.8; O2SAT 96
--- NOTE | 2024-03-31 23:09 | HP.PCM.HOS_ITS ---
[facility] - General General Date of Service: 03/31/24 Chief Complaint: left hip pain HPI Narrative RADHA ROJAS, is a 73 F who presents with a left hip pain. Patient was at [employer] and there was uneven sidewalk and she tripped, falling to her left side. She braced some the impact with her left wrist but did land on her left hip. She did not hit her head. She had pain and could not bear weight. Her son and picked her up put her in the car and sent her to the emergency room in [place]. Patient had hip x-ray that showed a left impacted hip fracture. Dr. Duarte, orthopedics, was contacted and would see the patient in consultation. [facility] Medical History (Updated 03/31/24 @ 23:[address] Luis Macedo, ) POTS (postural orthostatic tachycardia syndrome) Lactose intolerance Internal hemorrhoids Insomnia GERD (gastroesophageal reflux disease) Elevated anti-tissue transglutaminase (tTG) IgA level Depression Fox's cyst of knee Asthma exacerbation Anxiety Personal history of DVT (deep vein thrombosis) Home Medications ?Medication ?Instructions ?Recorded ?Last Taken ?Type bupropion HCl 100 mg tablet 150 mg PO BID 07/31/15 07/31/15 History metoprolol succinate 25 mg 25 mg PO DAILY 07/31/15 07/31/15 History tablet,extended release 24 hr simvastatin 40 mg tablet 40 mg PO QHS 07/31/15 07/30/15 History apixaban 5 mg tablet (Eliquis) 5 mg PO BID #60 tabs 09/27/16 Unknown Rx acetaminophen 500 mg tablet 500 mg PO Q6H PRN pain 02/03/22 Unknown History cholecalciferol (vitamin D3) 25 25 mcg PO DAILY 02/03/22 Unknown History mcg (1,000 unit) capsule epinephrine 0.3 mg/0.3 mL 0.3 mg IM ONCE 02/03/22 Unknown History injection, auto-injector fluticasone propionate 50 2 spray intranasal DAILY 02/03/22 Unknown History mcg/actuation nasal spray,suspension (Allergy Relief (fluticasone)) folic acid 1 mg tablet 1 mg PO DAILY 02/03/22 Unknown History glucosamine sulfate 500 mg tablet 500 mg PO DAILY 02/03/22 Unknown History hydroxychloroquine 200 mg tablet 200 mg PO BID 02/03/22 Unknown History ketoconazole 2 % topical cream 1 applic topical DAILY 02/03/22 Unknown History magnesium 200 mg tablet 200 mg PO BID 02/03/22 Unknown History triamcinolone acetonide 0.5 % 1 applic topical DAILY 02/03/22 Unknown History topical cream turmeric 100 mg-trang 150 cap PO 02/03/22 Unknown History mg-olive 50 mg-oreg 150 mg-capryl capsule ubidecarenone-omega 3-vit E 25 1 cap PO DAILY 02/03/22 Unknown History mg-150 (90-60) mg-200 unit capsule vitamin B complex (B 1 tab PO DAILY 02/03/22 Unknown History Complex-Vitamin B12 tablet) vitamin E mixed 400 unit tablet 400 unit PO DAILY 02/03/22 Unknown History [id number] See Rx Instructions PO TID #350 05/23/23 Unknown Rx 40,000-126,000-168,000 unit caps capsule, delay rel (Zenpep) linaclotide 290 mcg capsule 290 mcg PO QAM #90 caps 01/05/24 Unknown Rx (Linzess) budesonide 3 mg 9 mg (3 x 3 mg) PO DAILY #90 ea 03/16/24 Unknown Rx capsule,delayed,extended release estradiol 0.01% (0.1 mg/gram) 1 vaginal 03/31/24 Unknown History vaginal cream Allergy/AdvReac Type Severity Reaction Status Date / Time iodine Allergy Other Verified 03/31/24 21:23 shellfish derived Allergy Other Verified 03/31/24 21:23 polyethylene glycol 3350 AdvReac GI upset, Verified 03/31/24 21:23 (From Miralax) bloating Family History Mother Ovary cancer Lung cancer Father , at 83 Alzheimer disease Glaucoma Sister Histoplasmosis Surgical History History of total left knee replacement History of carpal tunnel release Hx of tonsillectomy History of adenoidectomy Cataract extraction status of right eye Cataract extraction status of left eye Social History Smoking Status: Never smoker alcohol intake: never substance use type: does not use ROS ROS Narrative Patient has a history of syncope but she had no syncope with this event. Chronically has intermittent diarrhea and constipation. All review of systems were negative except as mentioned above in the history of present illness and the other review of systems. Vital Signs Vital Signs Vital Signs: 03/31/24 21:22 03/31/24 21:33 03/31/24 22:00 Temperature 36.6 C Temperature Source Temporal Pulse Rate 66 70 Respiratory Rate 16 16 Respiratory Effort Normal Respiratory Depth Normal Respiratory Pattern Normal Blood Pressure 120/61 126/71 H Blood Pressure Mean 80 89 Pulse Ox 100 95 Oxygen Delivery Method Room Air Room Air Room Air Weight Weight: 72.2 kg Body Mass Index (BMI) 25.7 Physical Exam Const alert and no apparent distress HEENT normocephalic and head/scalp atraumatic Neck no lymphadenopathy Neck Narrative: No thyromegaly Resp normal respiratory effort and no retractions Cardio regular rate, regular rhythm and S1 normal heart sound GI normal to inspection, nondistended, normoactive bowel sounds, soft to palpation, non-tender and non-distended Extremity Extremity Narrative: Shortened left lower extremity compared to the right. Skin Skin Narrative: No rashes or lesions. Neuro Neuro Narrative: Sensation grossly intact throughout. Sensorium / Orientation: awake and alert Psych affect normal Results Lab / Micro Data Attestation: I reviewed the patient's lab results. 03/31/24 22:04 03/31/24 22:04 Labs: Laboratory Results - last 24 hr 03/31/24 22:04: WBC 9.1, RBC 3.41 L, Hgb 10.8 L, Hct 32.2 L, MCV 94.4, MCH 31.7, MCHC 33.5, RDW Std Deviation 47.9 H, RDW Coeff of Jonn 14.0, Plt Count 275, MPV 9.2, Immature Gran % (Auto) 0.300, Neut % (Auto) 80.5 H, Lymph % (Auto) 12.0 L, [place] % (Auto) 6.4, Eos % (Auto) 0.4, Baso % (Auto) 0.4, Absolute Neuts (auto) 7.3, Absolute Lymphs (auto) 1.09, Nucleated RBC % 0, PT 15.6 H, INR 1.2, APTT 27.0, Sodium 130 L, Potassium 3.5, Chloride 98, Carbon Dioxide 25.0, Anion Gap 7, BUN 17, Creatinine 0.97, Estim Creat Clear Calc 51.78, Est GFR (MDRD) Af Amer 72, Est GFR (MDRD) Non-Af 60, BUN/Creatinine Ratio 17.5, Glucose 126 H, Calcium 8.7 EKG Initial EKG: Attestation: I personally reviewed and interpreted this EKG as follows: Prior EKG tracings: available for review EKG Rhythm Intrepretation: Sinus Rhythm Imaging Left hip x-ray was reviewed and showed impacted left hip fracture. Left wrist x-ray, no obvious fracture or dislocation on my review. Chest x-ray reviewed and showed no infiltrate nor pulmonary edema. Assessment & Plan Assessment/Plan (1) Closed fracture of left hip: PLAN: Plan Left hip fracture * Status post mechanical fall. * And Q SIP performed and patient is overall low risk for complications. No additional medical optimization necessary other than waiting for apixaban to get out of her system. * Plan: Bedrest, orthopedics consultation, check 25-hydroxy vitamin D level. PT and OT to evaluate and treat after surgery. Discussed with patient about disposition as it could entail penitentiary facility, rehab, home with home care versus outpatient therapy. Pain control. VTE * Chronic * Patient takes apixaban. Last use of apixaban was on the morning of the . * Resume apixaban after surgery. Chronic conditions * IBS: Sees Dr. Villalobos. She does take budesonide as well as Linzess. * Chronic pancreatitis: Takes pancreatic enzymes * POTS: Has been worked up extensively. Takes metoprolol succinate daily., Will continue. VTE prophylaxis: SCDs. Then after surgery patient can resume her apixaban CODE STATUS: Addressed with the patient. Patient wished to be full code. Discussed with the patient's . Charges/Coding Visit Charges Inpatient E&M: 50074 Init Hosp L3
[2024-03-31 23:44] VITALS: BMI 24.6
[2024-03-31 23:57] VITALS: BP 130/56; PULSE 71; RESP 18; TEMP 36.9; O2SAT 96
[2024-04-01] VITALS (12 sets, daily range): BP systolic 101–132; BP diastolic 58–86; PULSE 65–89; RESP 16–18; TEMP 36.4–37.1; O2SAT 93–98; BMI 24.6
[2024-04-01] MEDS: oxyCODONE 5 MG Tablet PO (00:25)
[2024-04-01] MEDS: Acetaminophen 500 MG Tablet 1000 MG PO ×2 (05:18→17:37)
[2024-04-01 06:25] LABS: Absolute Lymphocyte Count 0.85 X10^3/uL (0.83-4.51); Absolute Neutrophil Count 5.9 X10^3/uL (2.0-7.7); Basophil# 0.01 X10^3/uL; Basophil% 0.1 % (0-1); Eosinophil# 0.06 X10^3/uL; Eosinophils% 0.8 % (0-5); Hematocrit 29.9 % (37-47); Hemoglobin 10.2 g/dL (12.0-15.0); Lymphocyte # 0.85 X10^3/ul (0.83-4.51); Lymphocyte % 11.7 % (19-41); Mean Corp Hgb Conc 34.1 g/dL (32-36); Mean Corpuscular Hgb 31.6 pg (27.0-32.0); Mean Corpuscular Volume 92.6 fL (81-99); Mean Platelet Vol. 9.1 fl (6.2-12.0); Monocyte# 0.49 X10^3/uL; Monocyte% 6.7 % (0-10); NRBC Flagged by Analyzer 0 % (0-5); Neutrophil # 5.86 X10^3/uL (2.7-7.7); Neutrophil % 80.4 % (47-70); Platelet Count 246 K/mm3 (150-450); RBC Distribution Width CV 13.8 % (11.6-14.6); RBC Distribution Width SD 47.2 fl (35.1-43.9); Red Blood Count 3.23 M/mm3 (4.2-5.4); White Blood Count 7.3 K/mm3 (4.4-11.0)
[2024-04-01 07:48] LABS: Anion Gap 5 (5-15); BUN 13 mg/dL (7-18); BUN/Creat Ratio 18.2 RATIO (10-20); Calcium,Total 8.5 mg/dL (8.5-10.1); Chloride 99 mmol/L (98-107); Creatinine, Serum 0.71 mg/dL (0.55-1.02); EST Glomerular Filtration Rate 85 mL/min (>60); Est Glom Filt Rate - Afr Amer 103 mL/min (>60); Estimated Creatinine Clearance 57.76 ml/min; Glucose 123 mg/dL (74-106); Potassium 3.8 mmol/L (3.5-5.1); Sodium Level 128 mmol/L (136-145)
[2024-04-01] MEDS: Metoprolol(XL)Succ 25 MG Tablet PO (09:36)
[2024-04-01] MEDS: Fluticasone 0.05% 1 SPRAY NASAL.SRY 2 SPRAY NASAL (09:37)
[2024-04-01] MEDS: Cefazolin 2 GM in 0.9% Normal Saline (100mL Bag) 100 ML IV ×2 (11:47→20:47)
--- NOTE | 2024-04-01 12:06 | CONS.ORTHO ---
HPI Consult Data Date of Consult: 04/01/24 HPI Narrative HPI Narrative: RADHA ROJAS, is a 73 F who presents with left hip femoral neck fracture. She presents to the ER last night. I was called for consult. I saw her this morning and 314. She had a fall due to uneven pavement yesterday at 6:30 PM. She fell with left outstretched hand onto her left hip. She had left hip and left wrist pain. Prior to this injury she was ambulating without any ambulatory aid. She has had left knee replacement 3 years ago. She is on Eliquis for DVT and pulm embolism. Her last dose of Eliquis was yesterday morning. She denies injuries to any other extremities. She denies any head injury. [facility] Medical History (Updated 04/01/24 @ 12:[address] Nacho Duarte MD) IBS (irritable bowel syndrome) Pancreatitis POTS (postural orthostatic tachycardia syndrome) Lactose intolerance Internal hemorrhoids Insomnia GERD (gastroesophageal reflux disease) Elevated anti-tissue transglutaminase (tTG) IgA level Depression Fox's cyst of knee Asthma exacerbation Anxiety Personal history of DVT (deep vein thrombosis) Home Medications ?Medication ?Instructions ?Recorded ?Last Taken ?Type bupropion HCl 100 mg tablet 150 mg PO BID depression 07/31/15 07/31/15 History metoprolol succinate 25 mg 25 mg PO DAILY bp 07/31/15 07/31/15 History tablet,extended release 24 hr simvastatin 40 mg tablet 40 mg PO QHS hld 07/31/15 07/30/15 History apixaban 5 mg tablet (Eliquis) 5 mg PO BID blood thin #60 tabs 09/27/16 Unknown Rx acetaminophen 500 mg tablet 500 mg PO Q6H PRN pain 02/03/22 Unknown History cholecalciferol (vitamin D3) 25 25 mcg PO DAILY supplement 02/03/22 Unknown History mcg (1,000 unit) capsule epinephrine 0.3 mg/0.3 mL 0.3 mg IM ONCE 02/03/22 Unknown History injection, auto-injector fluticasone propionate 50 2 spray intranasal DAILY allergy 02/03/22 Unknown History mcg/actuation nasal spray,suspension (Allergy Relief (fluticasone)) folic acid 1 mg tablet 1 mg PO DAILY supplement 02/03/22 Unknown History glucosamine sulfate 500 mg tablet 500 mg PO DAILY supplement 02/03/22 Unknown History hydroxychloroquine 200 mg tablet 200 mg PO BID 02/03/22 Unknown History ketoconazole 2 % topical cream 1 applic topical DAILY see 02/03/22 Unknown History magnesium 200 mg tablet 200 mg PO BID supplement 02/03/22 Unknown History triamcinolone acetonide 0.5 % 1 applic topical DAILY 02/03/22 Unknown History topical cream turmeric 100 mg-trang 150 1 cap PO DAILY supplement 02/03/22 Unknown History mg-olive 50 mg-oreg 150 mg-capryl capsule ubidecarenone-omega 3-vit E 25 1 cap PO DAILY supplement 02/03/22 Unknown History mg-150 (90-60) mg-200 unit capsule vitamin B complex (B 1 tab PO DAILY supplement 02/03/22 Unknown History Complex-Vitamin B12 tablet) vitamin E mixed 400 unit tablet 400 unit PO DAILY supplement 02/03/22 Unknown History rkcnjg-krvmkprh-oopwzqb See Rx Instructions PO TID 05/23/23 Unknown Rx 40,000-126,000-168,000 unit pancreatitis #350 caps capsule, delay rel (Zenpep) linaclotide 290 mcg capsule 290 mcg PO QAM ibs #90 caps 01/05/24 Unknown Rx (Linzess) budesonide 3 mg 9 mg (3 x 3 mg) PO DAILY ibs #90 ea 03/16/24 Unknown Rx capsule,delayed,extended release Allergy/AdvReac Type Severity Reaction Status Date / Time iodine Allergy Other Verified 03/31/24 21:23 shellfish derived Allergy Other Verified 03/31/24 21:23 polyethylene glycol 3350 AdvReac GI upset, Verified 03/31/24 21:23 (From Miralax) bloating Family History Mother Ovary cancer Lung cancer Father , at 83 Alzheimer disease Glaucoma Sister Histoplasmosis Surgical History History of total left knee replacement History of carpal tunnel release Hx of tonsillectomy History of adenoidectomy Cataract extraction status of right eye Cataract extraction status of left eye Social History Smoking Status: Never smoker alcohol intake: never substance use type: does not use Vital Signs Vital Signs Vital Signs: 03/31/24 21:22 03/31/24 21:33 03/31/24 22:00 Temperature 98 F Temperature Source Temporal Pulse Rate 66 70 Respiratory Rate 16 16 Respiratory Effort Normal Respiratory Depth Normal Respiratory Pattern Normal Blood Pressure 120/61 126/71 H Blood Pressure Mean 80 89 Blood Pressure Source Blood Pressure Position Blood Pressure Location Pulse Ox 100 95 Oxygen Delivery Method Room Air Room Air Room Air 03/31/24 23:09 03/31/24 23:57 04/01/24 00:31 Temperature 98.3 F 98.5 F Temperature Source Oral Pulse Rate 71 71 Respiratory Rate 18 18 Respiratory Effort Normal Respiratory Depth Normal Respiratory Pattern Normal Blood Pressure 133/80 H 130/56 H Blood Pressure Mean 97 80 Blood Pressure Source Monitor Blood Pressure Position Semi-Fowlers Blood Pressure Location Left Arm Pulse Ox 96 96 Oxygen Delivery Method Room Air Room Air 04/01/24 05:16 04/01/24 07:46 04/01/24 09:21 Temperature 98.8 F 98.6 F Temperature Source Oral Oral Pulse Rate 70 80 65 Respiratory Rate 18 18 Respiratory Effort Respiratory Depth Respiratory Pattern Blood Pressure 119/66 126/78 H Blood Pressure Mean 83 94 Blood Pressure Source Monitor Monitor Blood Pressure Position Semi-Fowlers Supine Blood Pressure Location Right Arm Left Arm Pulse Ox 95 96 Oxygen Delivery Method Room Air Room Air 04/01/24 09:36 Temperature Temperature Source Pulse Rate 65 Respiratory Rate Respiratory Effort Respiratory Depth Respiratory Pattern Blood Pressure Blood Pressure Mean Blood Pressure Source Blood Pressure Position Blood Pressure Location Pulse Ox Oxygen Delivery Method Weight Weight: 152 lb 12.485 oz Body Mass Index (BMI) 24.6 Physical Exam Narrative Examination of the left hip shows tenderness over the lateral aspect. Distally neurovascular exam is intact. She is able to dorsiflex toes and ankle. She has unknown rash over the lateral aspect of the mid femur. She usually utilizes cortisone cream for these rashes. Examination of the left wrist shows no significant swelling. Mild bony tenderness noticed throughout the wrist joint. Patient is able to range the wrist with minimal pain. Const alert and oriented x3 Lab / Micro Data 04/01/24 05:55 04/01/24 05:55 Labs: Laboratory Results - last 24 hr 03/31/24 22:04: WBC 9.1, RBC 3.41 L, Hgb 10.8 L, Hct 32.2 L, MCV 94.4, MCH 31.7, MCHC 33.5, RDW Std Deviation 47.9 H, RDW Coeff of Jonn 14.0, Plt Count 275, MPV 9.2, Immature Gran % (Auto) 0.300, Neut % (Auto) 80.5 H, Lymph % (Auto) 12.0 L, [place] % (Auto) 6.4, Eos % (Auto) 0.4, Baso % (Auto) 0.4, Absolute Neuts (auto) 7.3, Absolute Lymphs (auto) 1.09, Nucleated RBC % 0, PT 15.6 H, INR 1.2, APTT 27.0, Sodium 130 L, Potassium 3.5, Chloride 98, Carbon Dioxide 25.0, Anion Gap 7, BUN 17, Creatinine 0.97, Estim Creat Clear Calc 51.78, Est GFR (MDRD) Af Amer 72, Est GFR (MDRD) Non-Af 60, BUN/Creatinine Ratio 17.5, Glucose 126 H, Calcium 8.7 04/01/24 05:55: WBC 7.3, RBC 3.23 L, Hgb 10.2 L, Hct 29.9 L, MCV 92.6, MCH 31.6, MCHC 34.1, RDW Std Deviation 47.2 H, RDW Coeff of Jonn 13.8, Plt Count 246, MPV 9.1, Immature Gran % (Auto) 0.300, Neut % (Auto) 80.4 H, Lymph % (Auto) 11.7 L, [place] % (Auto) 6.7, Eos % (Auto) 0.8, Baso % (Auto) 0.1, Absolute Neuts (auto) 5.9, Absolute Lymphs (auto) 0.85, Nucleated RBC % 0, Sodium 128 L, Potassium 3.8, Chloride 99, Carbon Dioxide 24.0, Anion Gap 5, BUN 13, Creatinine 0.71, Estim Creat Clear Calc 57.76, Est GFR (MDRD) Af Amer 103, Est GFR (MDRD) Non-Af 85, BUN/Creatinine Ratio 18.2, Glucose 123 H, Calcium 8.5, Blood Type A POSITIVE, Antibody Screen NEGATIVE Imaging Radiology Impression Chest X-Ray 03/31/24 21:50 IMPRESSION: No radiographic evidence of acute cardiopulmonary disease. Electronically Signed: Son Chandler MD at 22:04 EDT , Wrist X-Ray 03/31/24 21:50 IMPRESSION: No acute fracture or dislocation. Electronically Signed: Son Chandler MD at 22:06 EDT , Hip/Pelvis X-Ray 03/31/24 21:54 IMPRESSION: Acute impacted subcapital fracture of the left femoral neck. Electronically Signed: Son Chandler MD at 22:09 EDT , Assessment & Plan Assessment/Plan (1) Left displaced femoral neck fracture: PLAN: Plan I reviewed her x-rays done in the ER. She has left hip subcapital displaced femoral neck fracture. Her left wrist x-rays do not show any osseous injuries. I explained to her the imaging findings in detail. For her left wrist injury we will observe this, as it appears to be contusion. For her left hip fracture, I recommend options for treatment. I explained to her that this is a surgical injury and would require surgery to allow early mobilization and ambulation for reducing recumbency complications. I recommend left hip hemiarthroplasty. All risk benefits and alternatives were discussed in detail with the risks include but are not limited to infection, bleeding, hematoma formation, injury to nerves and vessels, limb length discrepancy, periprosthetic fracture, need for further surgeries, need for total hip replacement in the future, DVT, pulm embolism, persistent pain, persistent limp, pneumonia, atelectasis, cement embolism, intraoperative hypotension, cardiopulmonary event. Patient understands and agrees to proceed with surgery. Consent was signed. Charges/Coding Visit Charges Inpatient E&M: 72474 Init Hosp L3
--- NOTE | 2024-04-01 12:16 | PCM.PN.HOSP ---
Reason for Visit Reason for Visit: Diagnoses Fracture of unspecified part of neck of left femur, initial encounter for closed fracture (03/31/24) Subjective Subjective Patient was seen and examined today, she is due to have surgery to repair her left femoral neck fracture, I talked at length with her and her about rehab services, since she has Medicare and B, I think she would be a good candidate for the rehab unit here, she is very active at home. Objective Data Objective Data Vital Signs: Vital Signs Temp Pulse Resp BP Pulse Ox O2 Del Method 98.6 F 65 18 126/78 H 96 Room Air 04/01/24 09:21 04/01/24 09:36 04/01/24 09:21 04/01/24 09:21 04/01/24 09:21 04/01/24 09:21 Oxygen Delivery Method Room Air Weight: 69.3 kg Body Mass Index (BMI) 24.6 Intake & Output: Intake and Output for Last 24 Hours 03/30/24 03/31/24 04/01/24 23:59 23:59 23:59 Intake Total 167.5 / 167.5 9.25 / 9.25 Output Total 1475 / 1475 Balance 167.5 / 167.5 -1465.75 / -1465.75 Lab / Micro Data 04/01/24 05:55 04/01/24 05:55 Labs: Laboratory Results - last 24 hr 03/31/24 22:04: WBC 9.1, RBC 3.41 L, Hgb 10.8 L, Hct 32.2 L, MCV 94.4, MCH 31.7, MCHC 33.5, RDW Std Deviation 47.9 H, RDW Coeff of Jonn 14.0, Plt Count 275, MPV 9.2, Immature Gran % (Auto) 0.300, Neut % (Auto) 80.5 H, Lymph % (Auto) 12.0 L, [place] % (Auto) 6.4, Eos % (Auto) 0.4, Baso % (Auto) 0.4, Absolute Neuts (auto) 7.3, Absolute Lymphs (auto) 1.09, Nucleated RBC % 0, PT 15.6 H, INR 1.2, APTT 27.0, Sodium 130 L, Potassium 3.5, Chloride 98, Carbon Dioxide 25.0, Anion Gap 7, BUN 17, Creatinine 0.97, Estim Creat Clear Calc 51.78, Est GFR (MDRD) Af Amer 72, Est GFR (MDRD) Non-Af 60, BUN/Creatinine Ratio 17.5, Glucose 126 H, Calcium 8.7 04/01/24 05:55: WBC 7.3, RBC 3.23 L, Hgb 10.2 L, Hct 29.9 L, MCV 92.6, MCH 31.6, MCHC 34.1, RDW Std Deviation 47.2 H, RDW Coeff of Jonn 13.8, Plt Count 246, MPV 9.1, Immature Gran % (Auto) 0.300, Neut % (Auto) 80.4 H, Lymph % (Auto) 11.7 L, [place] % (Auto) 6.7, Eos % (Auto) 0.8, Baso % (Auto) 0.1, Absolute Neuts (auto) 5.9, Absolute Lymphs (auto) 0.85, Nucleated RBC % 0, Sodium 128 L, Potassium 3.8, Chloride 99, Carbon Dioxide 24.0, Anion Gap 5, BUN 13, Creatinine 0.71, Estim Creat Clear Calc 57.76, Est GFR (MDRD) Af Amer 103, Est GFR (MDRD) Non-Af 85, BUN/Creatinine Ratio 18.2, Glucose 123 H, Calcium 8.5, Blood Type A POSITIVE, Antibody Screen NEGATIVE Radiography Diagnostic Testing: Radiology Impression Chest X-Ray 03/31/24 21:50 IMPRESSION: No radiographic evidence of acute cardiopulmonary disease. Electronically Signed: Son Chandler MD at 22:04 EDT , Wrist X-Ray 03/31/24 21:50 IMPRESSION: No acute fracture or dislocation. Electronically Signed: Son Chandler MD at 22:06 EDT , Hip/Pelvis X-Ray 03/31/24 21:54 IMPRESSION: Acute impacted subcapital fracture of the left femoral neck. Electronically Signed: Son Chandler MD at 22:09 EDT , Physical Exam Const alert, oriented x3, no apparent distress, average body habitus and healthy appearing General Appearance: cooperative, well kempt and well developed Orientation / Consciousness: awake, oriented to person, oriented to place and oriented to time HEENT normocephalic, head/scalp atraumatic and moist oral mucous membranes Eyes PERRL, EOMs intact bilaterally and conjunctivae normal Neck supple, no JVD, thyroid normal and no carotid bruits General: trachea midline Resp normal respiratory effort, no retractions, no use of accessory muscles and clear to auscultation bilaterally Auscultation: Negative for rales, rhonchi or wheezes Cardio regular rate, regular rhythm, S1 normal heart sound, S2 normal heart sound, no murmurs, no rub and no gallops GI normal to inspection, nondistended, normoactive bowel sounds, soft to palpation, non-tender and non-distended Skin no rashes or lesions noted General Skin Exam: no breakdown Neuro oriented x3, CN's II-XII intact bilaterally, no focal motor deficits and no sensory deficits noted Sensorium / Orientation: awake and alert Speech: speech normal Psych affect normal Assessment & Plan Assessment/Plan (1) Left displaced femoral neck fracture: PLAN: Plan 1. Left displaced femoral neck fracture due to osteoporosis-patient will undergo ORIF today, PT and OT will see patient, I believe she is a good candidate to go to the rehab unit for inpatient rehab services. I briefly talked with the rehab department today. #2 use of chronic anticoagulant (Eliquis) due to multiple VTE's-patient states she has lupus anticoagulant, she is currently on Eliquis which is being held for the surgery, and will be resumed tomorrow #3 chronic depression-patient is on Wellbutrin #4 postural orthostatic tachycardia syndrome-patient is on metoprolol #5 chronic anemia-etiology unclear, I will order serum iron and TIBC as well as ferritin for the a.m. Total clinical time spent by myself addressing the patient's medical issues, reviewing all of her data, and collaborating with patient's care team: 35 minutes Charges/Coding Visit Charges Inpatient E&M: 35647 Subs Hosp L2
--- NOTE | 2024-04-01 12:20 | HIP_PTH ---
PATIENT: RADHA ROJAS LOC: [facility]3 U#:[id number] AGE/SX: 73/F [place] [facility] [place]03/31/[address]: Dr. Martina Tidwell DO : 1950 BED: 1 DIS: 04/02/2024 SPEC #: [id number] RECD: 04/02/24 07:35 STATUS: FAUSTO REAngelika #: [id number] AMADA: 04/01/24 12:[address]: Nacho Duarte DEPT: SURGICAL PATHOLOGY RECD BY: Brandan Bernal ENTERED: 04/02/24 09:08 SP TYPE: TOTAL HIP OTHR DR: Dr. Luis Macedo, DO Dr. William Silva, DO Dr. Martina Tidwell, DO Dr. Sundeep Mak DO Tissues: Hip, NOS Procedures: Decalcification bone/plaque Surgery Specimen Level IV HEADER OPERATION: Hemiarthroplasty, hip PRE-OP DIAGNOSIS: Left hip fracture TISSUE SUBMITTED: Left femoral head MICROSCOPIC DIAGNOSIS Bone and tissue of left hip, total hip resection: Consistent with organizing fracture site. AM: 04/05/24 MICROSCOPIC DESCRIPTION Slides are reviewed. GROSS DESCRIPTION Received is one container labeled with the patient's name and designated femoral head and tissue. The specimen consists of a cabrera femoral head measuring 4.5 x 4.0 x 4.0 cm. The articular surface is grossly unremarkable. The non-articular surface is hemorrhagic and irregular consistent with fracture site. Also present in the specimen container are multiple detached pieces of dark-cabrera bone measuring in aggregate 5.0 x 3.0 x 1.5 cm. Cattle Sorter sections are submitted in three cassettes after decalcification. AM/ 04/02/2024 TC:5 CPT: 93767, 60377
[2024-04-01] MEDS: JPS (Morphine 10mg/ml) OPERA.SITE (14:15)
[2024-04-01] MEDS: TRANEXAMIC ACID 2,000 MG, 0.9% Normal Saline (100mL Bag) 100 ML OPERA.SITE (14:18)
--- NOTE | 2024-04-01 14:20 | RAD_ITS ---
STUDY: X-RAY - PELVIS AND LEFT HIP REASON FOR EXAM: Female, 73 years old. HEMIARTHROPLASTY HIP -- X-TABLE IN OR TECHNIQUE: XR Pelvis 1 or 2 Views COMPARISON: None. FINDINGS: There is no fracture or dislocation. There is anatomic alignment. The soft tissue planes are preserved. Total hip arthroplasty. There is an air-fluid level seen in the operative site. Joint space is preserved. Subcutaneous air is noted. RAD/Pelvis 1 or 2 Views IMPRESSION: Successful total hip arthroplasty. Electronically Signed: Hoang Douglass MD at 15:04 EDT ,
--- NOTE | 2024-04-01 14:50 | PCM.OPRPT ---
Report of Operation Date of Procedure: 04/01/24 Description of Surgical Findings:: PRINCIPAL PRE-OP DIAGNOSIS: Left subcapital FEMORAL NECK FRACTURE PRINCIPAL POST-OP DIAG: Left subcapital FEMORAL NECK FRACTURE PRINCIPAL PROCEDURE: Left cemented HIP HEMIARTHROPLASTY CPT 60947 Surgeon: Nacho Duarte MD ANESTHESIA: General Anesthesia Record E.B.L. 100 cc SPECIMENS: None COMPLICATIONS: None DISPOSITION: PACU then potentially floor Implants: Andrey Accolade C cemented femoral stem, bipolar head OPERATIVE REPORT: INDICATION FOR SURGERY: Patient sustained a ground-level fall on the left hip with a subsequent displaced left subcapital femoral neck fracture. After discussion with the patient as well as family risk, patient elected for operative intervention with a hemiarthroplasty. Risks were discussed with the patient family including but not limited to blood loss, infection, nerve damage, instability, need for revision surgery, intraoperative fracture, cardiac arrest, . Patient signed consent for surgery. Patient was evaluated preoperatively by anesthesia who deemed the patient medically appropriate for the operating room. PROCEDURE: The patient was brought to the operating room and initial timeout was performed prior to induction of anesthesia. After confirming the patient's side, patient name with 2 unique identifiers as well as surgical plan, the patient was sedated per the anesthesiologist and intubated. Preoperative IV antibiotic was given. Patient was then placed in right lateral decubitus position with a pegboard and all bony prominences well-padded. The left lower extremity was sterilely prepped and draped in standard fashion. A second confirmatory timeout was completed which the patient's name and identification with 2 unique identifiers as well as the appropriate side and procedure was confirmed by everyone in the operating room. A standard posterior approach to the hip was performed with sharp dissection through the IT band and fascia. The piriformis tendon and some of the short external rotators were released off of the right hip and tagged. Capsulotomy was performed and tagging stitch was also placed in the capsule. The femoral neck was then cut 1 cm proximal to the lesser trochanter. The femoral head was then removed. The head measured a 42 and a trial of 42 and 43 mm were used. 43 mm head appeared to have a more stable fit. Next the femoral canal was prepped, the canal was broached up to a size 4 stem which had stable fixation. The canal was then prepped and a size 4 stem was cemented into the femur. After the cement was hard, a 43 shell standard offset with -3 neck was trialed which had appropriate leg length, range of motion, and stability. Trial was then removed the acetabulum was irrigated to ensure there was no cement in the acetabulum. A 43 shell with a 26 head standard offset with -3 neck was then placed and hip was reduced. Stability was then confirmed as well as leg length and range of motion which were all adequate and appropriate. The wound was then again irrigated with Pulsavac saline. Irrisept solution was then placed in the wound for 1 minutes & washed off. The short external rotators were repaired as well as the capsule through 2 drill holes in the greater trochanter. Pain cocktail and tranexamic acid was then injected into the local soft tissues. The wound was then closed in layered fashion with interrupted 0 Vicryl, #2 strata fix for deep fascia, 2-0 Vicryl for subcutaneous. And the skin was closed with elida. Wound was covered with mepilex dressing. The patient was awoken from anesthesia which they tolerated well. Patient was then taken to the PACU in stable fashion. Patient will be weightbearing as tolerated with posterior hip precautions of the left lower extremity. They will complete a course of postoperative DVT prophylaxis. We will see them back in clinic in 2 weeks for x-rays, wound check. Surgeon: Nacho Duarte Admit VTE Documentation VTE Mechan Device Prophylaxis: SCD's Procedures Musculoskeletal [id number]: Other Procedure See Report
[2024-04-01] MEDS: Lactated Ringers 1,000 ML 15 ML IV (15:26)
--- NOTE | 2024-04-01 15:28 | PCM.PN.ORT ---
Subjective Subjective Postop day 0 status post left hip hemiarthroplasty. Patient in PACU. Pain well-controlled. Objective Data Objective Data Vital Signs: Vital Signs Temp Pulse Resp BP Pulse Ox O2 Del Method 97.5 F L 87 16 101/86 H 96 Room Air 04/01/24 15:15 04/01/24 15:15 04/01/24 15:15 04/01/24 15:15 04/01/24 15:15 04/01/24 15:15 Oxygen Delivery Method Room Air Weight: 152 lb 12.485 oz Body Mass Index (BMI) 24.6 Intake & Output: Intake and Output for Last 24 Hours 03/30/24 03/31/24 04/01/24 23:59 23:59 23:59 Intake Total 167.5 / 167.5 1129.25 / 1129.25 Output Total 1875 / 1875 Balance 167.5 / 167.5 -745.75 / -745.75 Lab / Micro Data 04/01/24 05:55 04/01/24 05:55 Labs: Laboratory Results - last 24 hr 03/31/24 22:04: WBC 9.1, RBC 3.41 L, Hgb 10.8 L, Hct 32.2 L, MCV 94.4, MCH 31.7, MCHC 33.5, RDW Std Deviation 47.9 H, RDW Coeff of Jonn 14.0, Plt Count 275, MPV 9.2, Immature Gran % (Auto) 0.300, Neut % (Auto) 80.5 H, Lymph % (Auto) 12.0 L, [place] % (Auto) 6.4, Eos % (Auto) 0.4, Baso % (Auto) 0.4, Absolute Neuts (auto) 7.3, Absolute Lymphs (auto) 1.09, Nucleated RBC % 0, PT 15.6 H, INR 1.2, APTT 27.0, Sodium 130 L, Potassium 3.5, Chloride 98, Carbon Dioxide 25.0, Anion Gap 7, BUN 17, Creatinine 0.97, Estim Creat Clear Calc 51.78, Est GFR (MDRD) Af Amer 72, Est GFR (MDRD) Non-Af 60, BUN/Creatinine Ratio 17.5, Glucose 126 H, Calcium 8.7 04/01/24 05:55: WBC 7.3, RBC 3.23 L, Hgb 10.2 L, Hct 29.9 L, MCV 92.6, MCH 31.6, MCHC 34.1, RDW Std Deviation 47.2 H, RDW Coeff of Jonn 13.8, Plt Count 246, MPV 9.1, Immature Gran % (Auto) 0.300, Neut % (Auto) 80.4 H, Lymph % (Auto) 11.7 L, [place] % (Auto) 6.7, Eos % (Auto) 0.8, Baso % (Auto) 0.1, Absolute Neuts (auto) 5.9, Absolute Lymphs (auto) 0.85, Nucleated RBC % 0, Sodium 128 L, Potassium 3.8, Chloride 99, Carbon Dioxide 24.0, Anion Gap 5, BUN 13, Creatinine 0.71, Estim Creat Clear Calc 57.76, Est GFR (MDRD) Af Amer 103, Est GFR (MDRD) Non-Af 85, BUN/Creatinine Ratio 18.2, Glucose 123 H, Calcium 8.5, Blood Type A POSITIVE, Antibody Screen NEGATIVE Radiography Diagnostic Testing: Radiology Impression Chest X-Ray 03/31/24 21:50 IMPRESSION: No radiographic evidence of acute cardiopulmonary disease. Electronically Signed: Son Chandler MD at 22:04 EDT Reading Location ID and State: [facility] / [place] Tel , Service support , Wrist X-Ray 03/31/24 21:50 IMPRESSION: No acute fracture or dislocation. Electronically Signed: Son Chandler MD at 22:06 EDT Reading Location ID and State: [facility] / [place] Tel , Service support , Hip/Pelvis X-Ray 03/31/24 21:54 IMPRESSION: Acute impacted subcapital fracture of the left femoral neck. Electronically Signed: Son Chandelr MD at 22:09 EDT , Pelvis X-Ray 04/01/24 14:20 IMPRESSION: Successful total hip arthroplasty. Electronically Signed: Hoang Douglass MD at 15:04 EDT , Physical Exam Narrative Dressing?CDI. Distal neurovascular exam is intact. Const alert and oriented x3 Assessment & Plan Assessment/Plan (1) S/P hip hemiarthroplasty: PLAN: Plan Postop day 0 status post left hip hemiarthroplasty. PT OT mobilization as tolerated. Abduction brace while in bed. Posterior hip precautions. Weightbearing as tolerated. Ancef x 2 doses. Will use her preop apixaban dosage for DVT prophylaxis which can start tomorrow a.m. Okay to modify if needed. Will continue to follow.
[2024-04-01] MEDS: Creon 24,000 unit DR Capsule 1 CAP PO (17:42)
[2024-04-01] MEDS: Creon 12,000 unit DR CapSULE 1 CAP PO (17:43)
[2024-04-01] MEDS: Hydroxychloroquine 200 MG Tablet PO (17:45)
[2024-04-01] MEDS: Senna/Docusate Sodium 1 Tablet 2 TABLET PO (20:47)
[2024-04-01] MEDS: Atorvastatin Calcium 20 MG Tablet PO (20:47)
[2024-04-01] MEDS: Magnesium Chloride 64 MG Delay Rel.Tablet PO (20:47)
[2024-04-01] MEDS: Ketorolac 15 MG/ML Vial IV (20:47)
[2024-04-01] MEDS: buPROPion (SR) 150 MG Tablet.SA PO (20:48)
[2024-04-02 00:46] VITALS: BP 117/59; PULSE 71; RESP 14; TEMP 36.6; O2SAT 96
[2024-04-02 04:26] VITALS: BP 122/65; PULSE 77; RESP 16; TEMP 36.9; O2SAT 97
[2024-04-02] MEDS: Cefazolin 2 GM in 0.9% Normal Saline (100mL Bag) 100 ML IV (04:29)
[2024-04-02] MEDS: Acetaminophen 500 MG Tablet 1000 MG PO ×2 (04:30→13:23)
[2024-04-02] MEDS: Ketorolac 15 MG/ML Vial IV ×2 (04:31→13:23)
[2024-04-02] MEDS: APIXABAN 5 MG TABLET PO (04:35)
[2024-04-02 06:17] LABS: Hematocrit 26.9 % (37-47); Hemoglobin 8.8 g/dL (12.0-15.0); Mean Corp Hgb Conc 32.7 g/dL (32-36); Mean Corpuscular Hgb 31.1 pg (27.0-32.0); Mean Corpuscular Volume 95.1 fL (81-99); Mean Platelet Vol. 9.2 fl (6.2-12.0); Platelet Count 207 K/mm3 (150-450); RBC Distribution Width CV 14.4 % (11.6-14.6); RBC Distribution Width SD 49.7 fl (35.1-43.9); Red Blood Count 2.83 M/mm3 (4.2-5.4); White Blood Count 8.7 K/mm3 (4.4-11.0)
[2024-04-02 06:57] LABS: Anion Gap 7 (5-15); BUN 10 mg/dL (7-18); BUN/Creat Ratio 13.9 RATIO (10-20); Calcium,Total 8.4 mg/dL (8.5-10.1); Chloride 99 mmol/L (98-107); Creatinine, Serum 0.72 mg/dL (0.55-1.02); EST Glomerular Filtration Rate 84 mL/min (>60); Est Glom Filt Rate - Afr Amer 102 mL/min (>60); Estimated Creatinine Clearance 57.76 ml/min; Ferritin 81 ng/mL (8-252); Glucose 111 mg/dL (74-106); Iron 27 ug/dL (50-170); Iron Binding Capacity,Total 252 ug/dL (250-450); PERCENT IRON SATURATION 10.7 % (15.0-55.0); Sodium Level 130 mmol/L (136-145)
[2024-04-02] MEDS: Creon 12,000 unit DR CapSULE 1 CAP PO ×2 (07:55→12:22)
[2024-04-02] MEDS: Creon 24,000 unit DR Capsule 1 CAP PO ×2 (07:56→12:22)
[2024-04-02] MEDS: Vitamin E 400 UNITS Capsule PO (07:57)
[2024-04-02] MEDS: Hydroxychloroquine 200 MG Tablet PO (07:57)
[2024-04-02] MEDS: Folic Acid 1 MG Tablet PO (07:57)
--- NOTE | 2024-04-02 09:55 | CASEMGMT ---
RN?CM?STATE ASSESSED PROPERTIES DIRECTOR?CM?to room to meet with patient for initial transition planning/care coordination?assessment.?RN?CM?introduced self and role at [facility].? Pt voices understanding and consents to?assessment?at this time.? Pt sitting up in chair in room in no distress at this time.? @ bedside. Pt is A/O at this time and answers all questions appropriately.?? Care providers, pharmacy, and demographics verified/updated at this time. PCP: Dr Silva Specialists: Dr Villalobos-GI, Dr Padilla-YARDAGE CONTROL CLERK, arthritis MD @ [facility], parts designer @ [facility]/Stevan, ortho @ [facility], community center coordinator @ [facility]/Moreno-Dr Saldaña. Preferred Pharmacy: [facility] Insurance: Nicholas HORTON Prescription Benefit:?yes Living Will/HPOA:?Has LW and HCPOA, who is her , Darius. LNOK: , Darius Living Arrangements: Lives w/her in 2-story home w/ramp entrance. FFSU. Independent @ her baseline, prior to fall/surgery. able to assist. 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 Transportation:?Pt and both drive. DME: States has the following DME available: WW, TSR, shower chair, grab bars, registered diet technician, long-handled shoe horn. Pt does not have sock aid. Therapy has provided pt w/handout. ?Pt states no need for further DME at this time.? HHC/SNF: No hx of SNF. Has had HHC in the past after knee surgery. Discussed discharge planning, including RU, SNF, HHC, and OP therapy and questions answered. Initially pt and stated one of the physicians had spoken w/them about [facility] RU and pt stated that was her preference @ discharge and she declined wanting list of other RU/SNF options. SW made aware. LEONIE BYRNES then spoke w/therapy who states pt doing very well and stated pt ambulated in hallways this AM 250 ft CGA and they felt pt safe to discharge home and do not feel pt needs RU. LEONIE BYRNES back to room and made aware of therapy's recommendations. Pt and both very pleased w/this and feel safe with pt discharging home. Discussed HHC and OP therapy further. Pt and state prefer OP therapy. Pt states she feels she will be able to get in/out of vehicle okay and able to transport her. SW made aware referral to RU no longer needed and Amarilis, MS3 RN CM, made aware of need of OP script for therapy. Pt and declined having other discharge planning needs/concerns at this time. CM?to follow for any further discharge planning/needs.? PLAN:??Home w/ and OP therapy. Uche BUSBYN?RN?CM
[2024-04-02 10:26] VITALS: BP 109/64; PULSE 83; RESP 18; TEMP 37.1; O2SAT 98
[2024-04-02] MEDS: Budesonide 3 MG CAPSULE.EC 9 MG PO (10:26)
[2024-04-02] MEDS: Fluticasone 0.05% 1 SPRAY NASAL.SRY 2 SPRAY NASAL (10:27)
[2024-04-02] MEDS: Cholecalciferol (VIT D3) 25 MCG TABLET (1,000 UNITS) PO (10:27)
[2024-04-02 10:28] VITALS: BP 112/68; PULSE 82
[2024-04-02] MEDS: Metoprolol(XL)Succ 25 MG Tablet PO (10:28)
[2024-04-02] MEDS: buPROPion (SR) 150 MG Tablet.SA PO (10:28)
[2024-04-02] MEDS: Senna/Docusate Sodium 1 Tablet 2 TABLET PO (10:29)
[2024-04-02] MEDS: Magnesium Chloride 64 MG Delay Rel.Tablet PO (10:29)
[2024-04-02] MEDS: LINACLOTIDE 290 MCG CAPSULE PO (10:33)
[2024-04-02] MEDS: 0.9% Saline Lock 10 ML Syringe IV ×2 (10:34→13:23)
--- NOTE | 2024-04-02 11:50 | CASEMGMT ---
LEONIE CM into pt room, provided pt with a rx for OP therapy. Pt would like to set this up on her own as she states she has a specific therapist she would like to work with. Pt denies any further homegoing needs at this time.
--- NOTE | 2024-04-02 12:21 | PCM.PN.ORT ---
Subjective Subjective Postop day 1 status post left hip hemiarthroplasty. Patient in 314. Pain well-controlled. Sitting up in chair. Worked with PT this morning. Minimal pain on weightbearing. No wrist pain or swelling this morning. Objective Data Objective Data Vital Signs: Vital Signs Temp Pulse Resp BP Pulse Ox O2 Del Method 98.8 F 82 18 112/68 98 Room Air 04/02/24 10:04/02/24 10:04/02/24 10:04/02/24 10:04/02/24 10:04/02/24 10:26 Oxygen Delivery Method Room Air Weight: 152 lb 12.485 oz Body Mass Index (BMI) 24.6 Intake & Output: Intake and Output for Last 24 Hours 03/31/24 04/01/24 04/02/24 23:59 23:59 23:59 Intake Total 167.5 / 167.5 1239.25 / 1239.25 463.5 / 463.5 Output Total 3000 / 3000 250 / 250 Balance 167.5 / 167.5 -1760.75 / -1760.75 213.5 / 213.5 Lab / Micro Data 04/02/24 05:34 04/02/24 05:34 Labs: Laboratory Results - last 24 hr 04/01/24 05:55: Vitamin D 25-Hydroxy 63.0 04/02/24 05:34: WBC 8.7, RBC 2.83 L, Hgb 8.8 L, Hct 26.9 L, MCV 95.1, MCH 31.1, MCHC 32.7, RDW Std Deviation 49.7 H, RDW Coeff of Jonn 14.4, Plt Count 207, MPV 9.2, Sodium 130 L, Potassium 4.0, Chloride 99, Carbon Dioxide 24.0, Anion Gap 7, BUN 10, Creatinine 0.72, Estim Creat Clear Calc 57.76, Est GFR (MDRD) Af Amer 102, Est GFR (MDRD) Non-Af 84, BUN/Creatinine Ratio 13.9, Glucose 111 H, Calcium 8.4 L, Iron 27 L, TIBC 252, Iron Saturation 10.7 L, Ferritin 81 Radiography Diagnostic Testing: Radiology Impression Pelvis X-Ray 04/01/24 14:20 IMPRESSION: Successful total hip arthroplasty. Electronically Signed: Hoang Douglass MD at 15:04 EDT , Physical Exam Narrative Dressing?CDI. Distal neurovascular exam LLE is intact. Left wrist no significant swelling, range of motion is good. Const alert and oriented x3 Assessment & Plan Assessment/Plan (1) S/P hip hemiarthroplasty: PLAN: Plan Postop day 1 status post left hip hemiarthroplasty. Continued PT OT mobilization as tolerated. Abduction brace while in bed. Posterior hip precautions. Weightbearing as tolerated. Continue Eliquis for DVT prophylaxis. Okay to be discharged from orthopedic perspective, when medically ready. Home versus rehab will depend on PT recommendations. Follow-up in Ortho clinic in 2 weeks for staple removal.
[2024-04-02] MEDS: Furosemide 20 MG/2 ML VIAL IV (12:22)
[2024-04-02 12:39] LABS: Hemoglobin 9.6 g/dL (12.0-15.0)
--- NOTE | 2024-04-02 14:04 | DS.PCM_ITS ---
Providers Date of Admission: 03/31/24 Date of Discharge: 04/02/24 Primary Care Physician: Dr. William Silva, Consultations 03/31/24 23:33 Consult: Orthopedics Routine Consulting Provider: Nacho Duarte Reason for Consult: left hip fracture EMERGENT Consult: No MD Notified: Yes Date Notified: 03/31/24 Time Notified: 23:08 Method of Notification: ED Physician Initiated Reason For Visit: LEFT HIP FRACTURE Diagnosis Discharge Diagnosis (1) S/P hip hemiarthroplasty: Status: Acute Code(s): Z96.649 - Presence of unspecified artificial hip joint Medications at Discharge Home Medications bupropion HCl 100 mg tablet 150 mg PO BID depression 07/31/15 metoprolol succinate 25 mg tablet,extended release 24 hr 25 mg PO DAILY bp 07/31/15 simvastatin 40 mg tablet 40 mg PO QHS hld 07/31/15 apixaban 5 mg tablet (Eliquis) 5 mg PO BID blood thin #60 tabs 09/27/16 acetaminophen 500 mg tablet 500 mg PO Q6H PRN pain 02/03/22 cholecalciferol (vitamin D3) 25 mcg (1,000 unit) capsule 25 mcg PO DAILY supplement 02/03/22 epinephrine 0.3 mg/0.3 mL injection, auto-injector 0.3 mg IM ONCE 02/03/22 fluticasone propionate 50 mcg/actuation nasal spray,suspension (Allergy Relief (fluticasone)) 2 spray intranasal DAILY allergy 02/03/22 folic acid 1 mg tablet 1 mg PO DAILY supplement 02/03/22 glucosamine sulfate 500 mg tablet 500 mg PO DAILY supplement 02/03/22 hydroxychloroquine 200 mg tablet 200 mg PO BID 02/03/22 ketoconazole 2 % topical cream 1 applic topical DAILY see md 02/03/22 magnesium 200 mg tablet 200 mg PO BID supplement 02/03/22 triamcinolone acetonide 0.5 % topical cream 1 applic topical DAILY 02/03/22 turmeric 100 mg-trang 150 mg-olive 50 mg-oreg 150 mg-capryl capsule 1 cap PO DAILY supplement 02/03/22 ubidecarenone-omega 3-vit E 25 mg-150 (90-60) mg-200 unit capsule 1 cap PO DAILY supplement 02/03/22 vitamin B complex (B Complex-Vitamin B12 tablet) 1 tab PO DAILY supplement 02/03/22 vitamin E mixed 400 unit tablet 400 unit PO DAILY supplement 02/03/22 llxagk-cmfroliv-twuffhv 40,000-126,000-168,000 unit capsule, delay rel (Zenpep) See Rx Instructions PO TID pancreatitis #350 caps 05/23/23 linaclotide 290 mcg capsule (Linzess) 290 mcg PO QAM ibs #90 caps 01/05/24 budesonide 3 mg capsule,delayed,extended release 9 mg (3 x 3 mg) PO DAILY ibs #90 ea 03/16/24 acetaminophen 500 mg tablet 1,000 mg (2 x 500 mg) PO Q8 #0 tabs 04/02/24 oxycodone 5 mg tablet 5 mg PO Q6H PRN pain 5 days #20 tabs 04/02/24 Hospital Course Operations total hip replacement Procedures EKG and - (Chest x-ray/wrist x-ray/hip and pelvis x-ray/pelvis x-ray) Summary of Care Provided Minutes Spent on Discharge: 37 Hospital Course: Mrs. Thomas is a 73-year-old white female who presented to the emergency department at [facility] on 03/31/2024 with acute left hip pain after sustaining a mechanical fall from tripping on uneven sidewalk. She fell to her left side and braced the impact with her left upper extremity but landed on her left hip. She did not hit her head however she had significant left lower extremity pain following and could not bear weight. Her son and picked her up and put her in the car and then brought her to the emergency department at [facility] where imaging revealed a left impacted hip fracture. Her vital signs on presentation were overtly unremarkable. Her CBC noted mild chronic anemia with a hemoglobin of 10.8 but was otherwise unremarkable. She was hyponatremic with a sodium of 130 but this is her baseline and her CMP was otherwise unremarkable. EKG showed sinus rhythm with no ST-T wave changes concerning for acute ischemia and no interval abnormalities. She is on Eliquis at baseline for history of DVT. Her last dose of Eliquis was the a.m. of 03/31/2024. Orthopedic surgery was consulted and evaluated the patient after admission. She was taken to the OR on 04/01/2024 at which time a left hemiarthroplasty was performed. Postoperative recommendations were for physical and Occupational Therapy, abduction brace while in bed, posterior hip precautions, weightbearing as tolerated and continue Eliquis for DVT prophylaxis. Orthopedic surgery recommended outpatient follow-up within 2 weeks in the orthopedic clinic for staple removal and wound check. Patient is to leave her dressing on in the meantime. She was evaluated by physical and Occupational Therapy and they felt she could go home with outpatient physical therapy. She was able to ambulate 250 feet with standby assistance using a walker prior to discharge. She was advised to take Tylenol 1000 mg 3 times daily for 2 weeks and use as needed opiates along with a bowel regimen to avoid constipation. She will be maintained on her home Eliquis 5 mg p.o. twice daily for DVT prophylaxis with her history of recurrent VTE. Orders for physical and Occupational Therapy were given to her for outpatient therapy follow-up. I have also asked her to follow-up with her primary care physician within the next 2 weeks in addition to following up with orthopedic surgery as noted above. Patient was able to be discharged home in stable condition on 04/02/2024. Discharge diagnoses: Left displaced femoral neck fracture secondary to osteoporosis Left total hip arthroplasty History of recurrent VTE with chronic anticoagulation POTS Chronic anemia Exocrine pancreatic insufficiency IBS History of rectal prolapse History of depression Physical Exam Const alert, oriented x3, no apparent distress, average body habitus, no limitations, healthy appearing and well nourished Constitutional Narrative: Older, very pleasant, white female, sitting up in a chair at the bedside, appears comfortable, nontoxic, at the bedside General Appearance: cooperative, comfortable, well kempt and well developed Orientation / Consciousness: awake, oriented to person, oriented to place and oriented to time Exam Limitations: no limitations HEENT normocephalic, head/scalp atraumatic, hearing grossly normal bilaterally and moist oral mucous membranes HEENT Narrative: Mallampati 2, no thrush Eyes PERRL, EOMs intact bilaterally and conjunctivae normal Eyes Narrative: No scleral icterus Neck no lymphadenopathy and supple Neck Narrative: Trachea midline, no thyroid enlargement Resp normal respiratory effort, no retractions, no use of accessory muscles and clear to auscultation bilaterally Auscultation: Negative for rales, rhonchi or wheezes Cardio regular rate, regular rhythm, S1 normal heart sound, S2 normal heart sound, no murmurs, no rub, no gallops and no clicks GI normal to inspection, nondistended, normoactive bowel sounds, soft to palpation and non-tender Extremity no clubbing, cyanosis or edema Extremity Narrative: Pedal pulses are 2+ Skin no rashes or lesions noted, skin turgor normal and no jaundice Skin Narrative: Postoperative dressing is [id number] Neuro oriented x3, moves all extremities and no focal motor deficits Neuro Narrative: Decreased movement left lower extremity due to pain with movement Speech: speech normal Psych affect normal Psych Narrative: Extremely pleasant, eye contact is good and patient interacts appropriately Weight / BMI Weight Weight: 69.3 kg Body Mass Index (BMI) 24.6 ABG / Lab / Microbiology Data 04/02/24 12:15 04/02/24 05:34 Laboratory: Laboratory Results - last 24 hr 04/01/24 05:55: Vitamin D 25-Hydroxy 63.0 04/02/24 05:34: WBC 8.7, RBC 2.83 L, Hgb 8.8 L, Hct 26.9 L, MCV 95.1, MCH 31.1, MCHC 32.7, RDW Std Deviation 49.7 H, RDW Coeff of Jonn 14.4, Plt Count 207, MPV 9.2, Sodium 130 L, Potassium 4.0, Chloride 99, Carbon Dioxide 24.0, Anion Gap 7, BUN 10, Creatinine 0.72, Estim Creat Clear Calc 57.76, Est GFR (MDRD) Af Amer 102, Est GFR (MDRD) Non-Af 84, BUN/Creatinine Ratio 13.9, Glucose 111 H, Calcium 8.4 L, Iron 27 L, TIBC 252, Iron Saturation 10.7 L, Ferritin 81 04/02/24 12:15: Hgb 9.6 L Radiography Diagnostic Testing: Radiology Impression Pelvis X-Ray 04/01/24 14:20 IMPRESSION: Successful total hip arthroplasty. Electronically Signed: Hoang Douglass MD at 15:04 EDT , D/C Instructions Discharge Diet: Low fat / Low cholesterol Discharge Activity: May Not Shower and - (Okay for sponge bath but do not soak dressing until cleared by orthopedic surgery) Weight Bearing Status: Weight bearing as tolerated Keep extremity elevated above heart level: Left Leg Call your doctor if your incision/area has: Continuous Slow Oozing and Increased Redness Call your doctor if you observe: Fever of 101 or Higher Change Dressing in: leave in place till F/U Meaningful Use Info Meaningful Use Meaningful Use Diagnoses (Choose all that apply): None applicable Ischemic Stroke Statin Dosing Therapy Reference: STATIN DOSE THERAPY REFERENCE: * Patients > 75 years receive moderate or high dose statin therapy. * Patients 75 years or YOUNGER should receive HIGH intensity statin dose unless contraindicated. You will be required to document reason for non-treatment if statin daily dose does not meet guidelines. HIGH DOSE STATIN THERAPY DAILY Atorvastatin > than or = to 40 mg Rosuvastatin > than or = to 20 mg Amlodipine + Atorvastatin > than or = to 2.5/40 mg Ezetimibe + Simvastatin 10/80 mg Simvastatin 80mg Discharge Plan Admission Admit Date/Time: 03/31/24 23:04 Primary Reason for Your Visit: Left hip pain Attending Provider: Martina Tidwell Primary Care Provider: William Silva Consulting Providers: Nacho Duarte; Luis Macedo; Sundeep Mak Instructions Additional Instructions / Restrictions: 1. Okay to take 1000 mg of acetaminophen/Tylenol every 8 hours to avoid use of narcotics 2. Would recommend utilizing MiraLAX or an mzwd-abp-hopmpxs stool softener daily while on narcotics to avoid constipation 3. Weightbearing as tolerated on left lower extremity 4. Please follow hip precautions as explained per orthopedic surgery and physical therapy 5. Please call to schedule outpatient physical therapy appointment 6. Please use abduction brace while in bed Discharge Orders/Prescriptions Prescriptions: New acetaminophen 500 mg Tablet 1,000 mg PO Q8 Qty: 0 0RF Rx Instructions: Take every 8 hours as above for 2 weeks then go back to as needed oxycodone 5 mg Tablet 5 mg PO Q6H PRN (Reason: pain) 5 Days Qty: 20 0RF Continued ubidecarenone-omega 3-vit E 25-150-200 mg-mg-unit capsule 1 cap PO DAILY hydroxychloroquine 200 mg tablet 200 mg PO BID triamcinolone acetonide 0.5 % cream 1 applic topical DAILY ketoconazole 2 % cream 1 applic topical DAILY yfmxmixo-tsur-hcqqh-oreg-capry 100 mg-150 mg- 50 mg-150 mg capsule 1 cap PO DAILY vitamin E mixed 400 unit tablet 400 unit PO DAILY glucosamine sulfate 500 mg tablet 500 mg PO DAILY Rx Instructions: administer with a meal fluticasone propionate [Allergy Relief (fluticasone)] 50 mcg/actuation spray,suspension 2 spray intranasal DAILY Rx Instructions: administer into each nostril, rinse mouth after use vitamin B complex [B Complex-Vitamin B12] Tablet 1 tab PO DAILY folic acid 1 mg tablet 1 mg PO DAILY epinephrine 0.3 mg/0.3 mL auto-injector 0.3 mg IM ONCE Rx Instructions: as a single dose; may repeat once cholecalciferol (vitamin D3) 25 mcg (1,000 unit) capsule 25 mcg PO DAILY magnesium 200 mg tablet 200 mg PO BID simvastatin 40 MG tablet 40 mg PO QHS bupropion HCl 100 MG tablet 150 mg PO BID metoprolol succinate 25 MG tablet 25 mg PO DAILY Eliquis 5 MG tablet 5 mg PO BID Qty: 60 6RF Zenpep 40,000-126,000- 168,000 unit capsule,delayed release(DR/EC) See Rx Instructions PO TID Qty: 350 11RF Rx Instructions: take three with meals and one-two with snacks; administer with meals and/or snacks Linzess 290 mcg capsule 290 mcg PO QAM Qty: 90 3RF budesonide 3 mg capsule,delayed,extend.release 9 mg PO DAILY Qty: 90 1RF Held acetaminophen 500 mg tablet 500 mg PO Q6H PRN (Reason: pain) Hold Instructions: For 2 weeks Referrals / Follow Up: Nacho Duarte MD [Med Staff - Active Staff] - Within 2 Weeks (Call office to set up appointment) William Silva DO [Primary Care Provider] - Within 2 Weeks Disposition Disposition (needs filled in before D/C Order can be placed): Home, Self Care Charges/Coding Visit Charges Inpatient E&M: 88668 Disch Hosp >30min
--- NOTE | 2024-04-02 15:17 | PHA.DC.MR.R ---
Pharmacy MA Med Reconciliation Pharmacy Service has performed discharge medication reconciliation for this patient. Unable to international student counselor, medications reviewed. The patient's discharge medication list was reviewed for discrepancies and discrepancies were resolved. Medications at Discharge Home Medications bupropion HCl 100 mg tablet 150 mg PO BID depression 07/31/15 metoprolol succinate 25 mg tablet,extended release 24 hr 25 mg PO DAILY bp 07/31/15 simvastatin 40 mg tablet 40 mg PO QHS hld 07/31/15 apixaban 5 mg tablet (Eliquis) 5 mg PO BID blood thin #60 tabs 09/27/16 acetaminophen 500 mg tablet 500 mg PO Q6H PRN pain 02/03/22 cholecalciferol (vitamin D3) 25 mcg (1,000 unit) capsule 25 mcg PO DAILY supplement 02/03/22 epinephrine 0.3 mg/0.3 mL injection, auto-injector 0.3 mg IM ONCE 02/03/22 fluticasone propionate 50 mcg/actuation nasal spray,suspension (Allergy Relief (fluticasone)) 2 spray intranasal DAILY allergy 02/03/22 folic acid 1 mg tablet 1 mg PO DAILY supplement 02/03/22 glucosamine sulfate 500 mg tablet 500 mg PO DAILY supplement 02/03/22 hydroxychloroquine 200 mg tablet 200 mg PO BID 02/03/22 ketoconazole 2 % topical cream 1 applic topical DAILY see 02/03/22 magnesium 200 mg tablet 200 mg PO BID supplement 02/03/22 triamcinolone acetonide 0.5 % topical cream 1 applic topical DAILY 02/03/22 turmeric 100 mg-trang 150 mg-olive 50 mg-oreg 150 mg-capryl capsule 1 cap PO DAILY supplement 02/03/22 ubidecarenone-omega 3-vit E 25 mg-150 (90-60) mg-200 unit capsule 1 cap PO DAILY supplement 02/03/22 vitamin B complex (B Complex-Vitamin B12 tablet) 1 tab PO DAILY supplement 02/03/22 vitamin E mixed 400 unit tablet 400 unit PO DAILY supplement 02/03/22 ppupms-hhayyzss-mscolwh 40,000-126,000-168,000 unit capsule, delay rel (Zenpep) See Rx Instructions PO TID pancreatitis #350 caps 05/23/23 linaclotide 290 mcg capsule (Linzess) 290 mcg PO QAM ibs #90 caps 01/05/24 budesonide 3 mg capsule,delayed,extended release 9 mg (3 x 3 mg) PO DAILY ibs #90 ea 03/16/24 acetaminophen 500 mg tablet 1,000 mg (2 x 500 mg) PO Q8 #0 tabs 04/02/24 oxycodone 5 mg tablet 5 mg PO Q6H PRN pain 5 days #20 tabs 04/02/24
[2024-04-02 16:26] VITALS: BP 114/76; PULSE 78; RESP 16; TEMP 37; O2SAT 97
[2024-04-02 16:30] VITALS: BP 112/68; PULSE 78; RESP 18; TEMP 37.1; O2SAT 97
== END 2024-04-02 16:46 | disposition home or self-care (01) | DRG 522 ==
LOC: ED 23:02 → MS3 23:23
PROVIDERS: Internal Medicine; Orthopaedic Surgery Orthopaedic Surgery of the Spine; Emergency Provider Emergency Medicine; PCP Student in an Organized Health Care Education/Training Program; Visit Provider Internal Medicine
PROC: 0SRS019 Replacement of Left Hip Joint, Femoral Surface with Metal Synthetic Substitute, Cemented, Open Approach (ICD-10-PCS; CPT 27125; principal; 2024-04-01 12:00)
DX: M80.052A Age-related osteoporosis with current pathological fracture, left femur, initial encounter for fracture (principal); D68.62 Lupus anticoagulant syndrome; K86.1 Other chronic pancreatitis; D64.9 Anemia, unspecified; K86.81 Exocrine pancreatic insufficiency; F32.A Depression, unspecified; I10 Essential (primary) hypertension; S60.212A Contusion of left wrist, initial encounter; I49.8 Other specified cardiac arrhythmias; K58.9 Irritable bowel syndrome, unspecified; W18.09XA Striking against other object with subsequent fall, initial encounter; Y92.39 Other specified sports and athletic area as the place of occurrence of the external cause; Y93.01 Activity, walking, marching and hiking; Z79.01 Long term (current) use of anticoagulants; Z79.51 Long term (current) use of inhaled steroids; Z96.652 Presence of left artificial knee joint; Z86.718 Personal history of other venous thrombosis and embolism
CPT/HCPCS: 36415; 71045; 72170; 73110; 73502; 80048; 82306; 82728; 83540; 83550; 85018; 85025; 85027; 85610; 85730; 86850; 86900; 86901; 88305; 88311; 93005; 94668; 97162; 97166; 97802; 99284; C1776; J7030; J7120; A4216; J1940; J2405

== ENCOUNTER → 2024-09-19 | Outpatient (CLI) | payer MEDICARE, OTHER, SELFPAY ==
[2024-09-19 08:30] LABS: Urine Chloride 76 mmol/L (Not Establ.); Urine Sodium 81 mmol/L (Not Establ.)
[2024-09-19 08:39] LABS: Magnesium 2.6 mg/dL (1.6-2.6)
[2024-09-19 08:43] LABS: Calcium, Urine (Random) < 5.0 mg/dL (Not Estab.)
[2024-09-21 13:09] LABS: Vitamin D 1,25-Dihydroxy 55.8 pg/mL (24.8-81.5)
[2024-10-02 16:10] LABS: ALDOSTERONE/RENIN RATIO 42.3 (0.0-30.0); Adrenocorticotropic Hormone 21.8 pg/mL (7.2-63.3); Aldosterone, Serum 10.7 ng/dL (0.0-30.0); Gastrin, Serum 19 pg/mL (0-115); Renin, Plasma 0.253 ng/mL/hr (0.167-5.380)
== END | disposition home or self-care (01) ==
PROVIDERS: PCP Student in an Organized Health Care Education/Training Program; Referring Provider Internal Medicine Gastroenterology; Visit Provider Internal Medicine Gastroenterology
DX: R14.0 Abdominal distension (gaseous) (principal); K86.81 Exocrine pancreatic insufficiency; M81.0 Age-related osteoporosis without current pathological fracture
CPT/HCPCS: 36415; 82024; 82088; 82340; 82384; 82436; 82533; 82652; 82941; 83735; 84133; 84244; 84300

== ENCOUNTER 2024-10-02 08:03 | Outpatient (CLI) | payer MEDICARE, OTHER, SELFPAY ==
[2024-10-02 08:16] VITALS: BP 127/78; PULSE 59; RESP 16; TEMP 36.4; O2SAT 100; BMI 25.4
[2024-10-02] MEDS: Cosyntropin 0.25 MG Vial IM (08:47)
[2024-10-02 09:52] VITALS: BP 120/68; PULSE 60; RESP 16; TEMP 36.3; O2SAT 99
== END 2024-10-02 23:59 | disposition home or self-care (01) ==
LOC: MEDOUTP 08:05
PROVIDERS: PCP Student in an Organized Health Care Education/Training Program; Referring Provider Internal Medicine Gastroenterology; Visit Provider Internal Medicine Gastroenterology
DX: R55 Syncope and collapse (principal); E87.1 Hypo-osmolality and hyponatremia; I95.9 Hypotension, unspecified
CPT/HCPCS: 36415; 82533; 96372; J0834

== ENCOUNTER → 2025-05-20 | Outpatient (CLI) | payer MEDICARE, OTHER, SELFPAY ==
[2025-05-21 13:08] LABS: Giardia Lamblia, Stool EIA Negative (Negative)
== END | disposition home or self-care (01) ==
LOC: LABSPEC 09:59
PROVIDERS: Student in an Organized Health Care Education/Training Program; PCP Student in an Organized Health Care Education/Training Program; Referring Provider Internal Medicine Gastroenterology; Visit Provider Internal Medicine Gastroenterology
DX: R19.5 Other fecal abnormalities (principal)
CPT/HCPCS: 87329

== ENCOUNTER → 2025-05-22 | Outpatient (CLI) | payer MEDICARE, OTHER, SELFPAY ==
[2025-05-23 23:07] LABS: Calprotectin, Stool 44 ug/g (0-120)
[2025-05-24 07:07] LABS: Pancreatic Elastase, Fecal 529 (>200)
== END | disposition home or self-care (01) ==
PROVIDERS: Student in an Organized Health Care Education/Training Program; PCP Student in an Organized Health Care Education/Training Program; Referring Provider Internal Medicine Gastroenterology; Visit Provider Internal Medicine Gastroenterology
DX: K58.0 Irritable bowel syndrome with diarrhea (principal)
CPT/HCPCS: 82653; 83993; 87177; 87209